=== PATIENT | male | born 1960 | race Caucasian/White ===

== ENCOUNTER 2016-04-17 23:25 | Emergency (ER) | payer BC ==
[2016-04-18] MEDS ORDERED: oxyCODONE/Acetamin 5/325 MG* TAB PO ONE (00:28)
[2016-04-18] MEDS ORDERED: Gabapentin CAP(*) 100 MG PO ONE (00:28)
[2016-04-18] MEDS ORDERED: Lidocaine 2.5%/Prilocain 2.5%* 5 GM TUBE TOPICAL ONE (00:29)
--- NOTE | 2016-04-18 01:03 | ED ---
Throat Pain/Nasal Congestion - HPI Summary HPI Summary: Patient arrives to ED with CC of dental pain. States he was seen at the dentist yesterday and was diagnosed with a dental infection. He was placed on abx. During examination, patient notes to difficult physical exam of dentist tapping on each tooth and causing nerve like pain. His front L tooth is now "throbbing" and every 15 seconds will have an episode of 10/10 throbbing pain in that tooth. The pain radiates to the frontal sinus and head. Patient notes to other dental pain as well, but the front L is the worst. Patient called dentist and dentist refused pain mediation. - History of Current Complaint Chief Complaint: EDDentalPain Time Seen by Provider: 04/18/16 00:01 Hx Obtained From: Patient Onset/Duration: Sudden Onset Severity: Severe Associated Signs And Symptoms: Positive: Negative - Allergies/Home Medications Allergies/Adverse Reactions: Allergies Allergy/AdvReac Type Severity Reaction Status Date / Time No Known Allergies Allergy Verified 02/22/15 14:17 PMH/Surg Hx/FS Hx/Imm Hx Previously Healthy: Yes Endocrine/Hematology History: Denies: Hx Diabetes, Hx Thyroid Disease Cardiovascular History: Reports: Other Cardiovascular Problems/Disorders - Vasogal, 2001, 2007, 2004, 2011 Denies: Hx Hypertension Respiratory History: Denies: Hx Asthma, Hx Chronic Obstructive Pulmonary Disease (COPD), Hx Seasonal Allergies GI History: Denies: Hx Ulcer History: Reports: Hx Kidney Stones - 2005 Musculoskeletal History: Reports: Hx Back Problems - muscle pain, left hip pain , Other Musculoskeletal History - broken bones, jaw, nose wrist thumb - Surgical History Surgery Procedure, Year, and Place: R side hernia repain 1976 Hx Anesthesia Reactions: No - Immunization History Date of Tetanus Vaccine: UNSURE Date of Influenza Vaccine: NONE Infectious Disease History: No Infectious Disease History: Denies: Hx Clostridium Difficile, Hx Hepatitis, Hx Human Immunodeficiency Virus (HIV), Hx of Known/Suspected MRSA, Hx Shingles, Hx Tuberculosis, Hx Known/ Suspected VRE, Hx Known/Suspected VRSA, History Other Infectious Disease, Traveled Outside the [place] in Last 30 Days - Social History Occupation: Employed Full-time Lives: With Family Alcohol Use: None Hx Substance Use: No Substance Use Type: Reports: Excessive Caffeine Substance Use Comment - Amount & Last Used: drinks a lot of diet sodas with caffiene Smoking Status (MU): Never Smoked Tobacco Have You Smoked in the Last Year: No Review of Systems Constitutional: Negative Positive: Photophobia Positive: Dental Pain - diffuse Cardiovascular: Negative Respiratory: Negative Musculoskeletal: Negative Skin: Negative Positive: Headache - during dental pain exacerbation Psychological: Normal All Other Systems Reviewed And Are Negative: Yes Physical Exam Triage Information Reviewed: Yes Vital Signs On Initial Exam: Initial Vitals Temp Pulse Resp BP Pulse Ox 97.9 F 83 22 116/82 98 04/17/16 23:28 04/17/16 23:28 04/17/16 23:28 04/17/16 23:28 04/17/16 23:28 Vital Signs Reviewed: Yes Appearance: Positive: Well-Appearing, No Pain Distress, Well-Nourished Skin: Positive: Warm, Skin Color Reflects Adequate Perfusion Eyes: Positive: Normal, EOMI, ED ENT: Positive: Dental tenderness - diffuse pain in upper and lower jaw Dental: Positive: Percussion Tenderness @ - diffuse, Dental Fracture @ - back L molar Neck: Positive: Supple, Nontender, No Lymphadenopathy Respiratory/Lung Sounds: Positive: Clear to Auscultation Cardiovascular: Positive: Normal Musculoskeletal: Positive: Normal, Strength/ROM Intact Neurological: Positive: Normal Psychiatric: Positive: Normal Diagnostics - Vital Signs Vital Signs Temp Pulse Resp BP Pulse Ox 04/17/16 23:28 97.9 F 83 22 116/82 98 - Laboratory Lab Statement: Any lab studies that have been ordered have been reviewed, and results considered in the medical decision making process. EENT Course/Dx - Course Course Of Treatment: Discussed pain management options. Prescribed oxycodone and gabapentin d/t likely nerve related dental pain. Orajel recommended and lollicaines given. Patient to follow up with dentist on friday. Already on Amoxicillin from infection. - Differential Diagnoses Differential Diagnoses: Dental Caries, Fractured Tooth, Periodontic Disease, Post-Extraction Pain - Diagnoses Provider Diagnoses: Pain, dental Discharge - Discharge Plan Condition: Stable Disposition: HOME Prescriptions: Gabapentin CAP(*) [Neurontin 300 CAP(*)] 300 mg PO TID #60 cap Gabapentin CAP(*) [Neurontin 300 CAP(*)] 300 mg PO TID #60 cap oxyCODONE/Acetamin 10/325(NF) [Percocet 10/325 (NF)] 1 tab PO Q6H PRN #30 tab MDD 4 PRN Reason: Pain Patient Education Materials: Toothache (ED) Referrals: Jonah Hanna MD [Primary Care Provider] - Additional Instructions: Take oxycodone as needed for pain. On opposite schedule of pain management, take naproxen 500mg twice daily with meals. For other pain relief, try cloves, orajel and lollicaines. Gabapentin three times daily - follow directions on prescription. Images - Images Dental: - 12/31 pain 2 - broken tooth
[2016-04-18 01:30] VITALS: BP 149/97
== END 2016-04-18 01:29 | disposition home or self-care (01) ==
LOC: ED 23:25
DX: K08.89 Other specified disorders of teeth and supporting structures (principal)
CPT/HCPCS: 99282; A9270-GY

== ENCOUNTER 2016-05-22 12:37 | Emergency (ER) | payer BC ==
[2016-05-22 12:48] VITALS: BP 116/79
--- NOTE | 2016-05-22 13:12 | UC ---
Epistaxis Nasal HPI - HPI Summary HPI Summary: PT HERE WITH ACTIVE BLEEDING FROM BOTH NARES. PT FEELS DIZZY BUT HAS H/O VASOVAGAL REACTIONS. PT HAD FLU LIKE SX LAST WEEK AND SO HAS BEEN BLOWING NOSE A LOT RECENTLY. YESTERDAY INJURED RIGHT HAND AT WORK AND SO TOOK ALEVE. WOKE UP ABOUT 1 AM IN A POOL OF BLOOD. WENT TO [facility] AND HAD NASAL TAMPON INSERTED RIGHT NARIS AND INSTRUCTED TO F/U WITH DR. AVELAR (ENT) IN THE MORNING. WENT HOME AND SNEEZED - BLOOD STARTED POURING OUT BOTH NARES. WENT BACK TO ER 6AM AND WAS REPACKED IN RIGHT NARIS. WENT STRAIGHT TO DR. GRIFFIN OFFICE AROUND 7:30AM. DR. AVELAR SAW PT AND SAID TO LEAVE PACKING IN PLACE AND FOLLOW-UP FOR RE-EVAL TOMORROW OR LATER TODAY IF BLEEDING STARTED AGAIN. PT CAME HERE TO [place] TO SEE HIS MOTHER. SNEEZED AND BLOOD STARTED GUSHING AGAIN SO HE CAME HERE TO . PT IS GAGGING ON BLOOD. IS NOT ANTICOAGULATED. TAKES A BABY ASPIRIN MAYBE ONCE PER MONTH. - History of Current Complaint Chief Complaint: UCGeneralIllness Stated Complaint: NOSE BLEED Time Seen by Provider: 05/22/16 12:48 Hx Obtained From: Patient Onset/Duration: Sudden Onset, Lasting Hours, Still Present Timing: Constant Severity Initially: Moderate Severity Currently: Moderate Pain Intensity: 0 Pain Scale Used: 0-10 Numeric Character: Heavy Aggravating Factor(s): URI Alleviating Factor(s): Nothing Associated Signs And Symptoms: Positive: Negative Related Hx: NSAIDs - TOOK 2 ALEVE LAST NIGHT - Allergies/Home Medications Allergies/Adverse Reactions: Allergies Allergy/AdvReac Type Severity Reaction Status Date / Time No Known Allergies Allergy Verified 02/22/15 14:17 PMH/Surg Hx/FS Hx/Imm Hx Endocrine History Of: Denies: Diabetes, Thyroid Disease Cardiovascular History Of: Reports: Cardiac Disorders - vaso vagal response, large rt ventricle Denies: Hypertension Respiratory History Of: Denies: COPD, Asthma GI/ History Of: Reports: Kidney Stones - 2005 Denies: Ulcer - Surgical History Surgical History: Yes Surgery Procedure, Year, and Place: R side hernia repain 1976 - Family History Known Family History: Negative: Blood Disorder - Social History Alcohol Use: None Substance Use Type: Excessive Caffeine Substance Use Comment - Amount & Last Used: drinks a lot of diet sodas with caffiene Smoking Status (MU): Never Smoked Tobacco Have You Smoked in the Last Year: No - Immunization History Most Recent Influenza Vaccination: never Most Recent Tetanus Shot: last couple years Most Recent Pneumonia Vaccination: never Review of Systems Constitutional: Negative, Fatigue - DIZZY ENT: Other - NOSE BLEED Respiratory: Negative Cardiovascular: Negative Gastrointestinal: Other - NAUSEA All Other Systems Reviewed And Are Negative: Yes Physical Exam Triage Information Reviewed: Yes Appearance: No Pain Distress, Well-Nourished, Ill-Appearing - PALE Vital Signs: Initial Vital Signs Temp 97.8 F 05/22/16 12:42 Pulse 108 05/22/16 12:42 Resp 18 05/22/16 12:42 BP 116/79 05/22/16 12:42 Pulse Ox 96 05/22/16 12:42 Vital Signs Reviewed: Yes Eyes: Positive: Conjunctiva Clear ENT: Positive: Hearing grossly normal, Other: - BLOOD SOAKED NASAL TAMPON RIGHT NARIS. BLOOD ACTIVELY OOZING OUT OF LEFT NARIS Neck: Positive: Supple Respiratory: Positive: No respiratory distress, No accessory muscle use Cardiovascular: Positive: Tachycardia Abdomen Description: Positive: Soft Musculoskeletal: Positive: No Edema Neurological: Positive: Alert Psychological: Positive: Age Appropriate Behavior Skin: Negative: rashes Epistaxis Nasal Course/Dx - Course Course Of Treatment: CALLED ENT - CLOSED FOR LUNCH. TO ER BY PRIVATE CAR ( DRIVEN BY A FRIEND). SEVERAL MINUTES AFTER PT LEFT I SPOKE TO DR. HUNTLEY WITH ENT. AGREED TO SEE PT IN OFFICE. CALLED PT AND SPOKE TO HIM ON THE PHONE. HE WILL REDIRECT TO ENT OFFICE. - Differential Dx/Diagnosis Provider Diagnoses: EPISTAXIS - Physician Notifications Discussed Patient Care With: DR. HUNTLEY (ENT) Time Discussed With Above Provider: 13:30 Instructed by Provider To: Send To Office Now - DR. HUNTLEY AGREES TO SEE PT IN OFFICE NOW. CALLED PT AND ADVISED HIM TO REDIRECT TO ENT OFFICE. Discharge - Discharge Plan Condition: Stable Disposition: OTHER Discharge Disposition Comment: TO ENT OFFICE DIRECTLY Patient Education Materials: Nosebleed (ED) Referrals: Jonah Hanna MD [Primary Care Provider] - Jaylan Huntley MD [Medical Doctor] - (GO THERE DIRECTLY) Additional Instructions: CONTACTED DR. HUNTLEY WITH ENT. GO DIRECTLY TO HIS OFFICE FOR FURTHER EVALUATION AND MANAGEMENT.
[2016-05-22] MEDS ORDERED: fentaNYL* 50 MCG/ML 5 ML VIAL (250 MCG VIAL) ONE (15:10)
[2016-05-22] MEDS ORDERED: KETAMINE HCL* 50 MG/ML 10 ML VIAL ONE (15:10)
[2016-05-22] MEDS ORDERED: Atracurium* 10 MG/ML 10 ML VIAL ONE (15:10)
[2016-05-22] MEDS ORDERED: Midazolam* 1 MG/ML 5 ML VIAL (5 MG) ONE (15:11)
[2016-05-22] MEDS ORDERED: Oxymetazoline 0.05% NASAL SPR* 15 ML BTL ONE (15:12)
[2016-05-22] MEDS ORDERED: Lidocain 1% EPI 1:100,000 * 30 ML MDV ONE (15:12)
[2016-05-22] MEDS ORDERED: Bacitracin OINTMENT* 0.5% 0.5 oz TUBE ONE (15:12)
[2016-05-22] MEDS ORDERED: Lidocaine 4% TOPICAL* 50 ML TOP.SOLN ONE (15:12)
[2016-05-22] MEDS ORDERED: Silver Nitrate/Potassium Nitr* 1 EA STICK ONE (15:12)
[2016-05-22] MEDS ORDERED: Glycopyrrolate IV* 0.2 MG/ML 1 ML VIAL ONE (16:39)
[2016-05-22] MEDS ORDERED: Neostigmine Methylsulfate* 2 MG/2 ML SYRINGE ONE (16:39)
== END 2016-05-22 13:37 ==
LOC: UCEAST 12:37
DX: R04.0 Epistaxis (principal); R42 Dizziness and giddiness
CPT/HCPCS: 99211; A9270-GY; G0463; J2250; J3010

== ENCOUNTER → 2016-05-22 15:08 | Day surgery (SDC) | payer BC ==
[~2016-05-22 15:08] MED LIST: Buffered Lidocaine 1% SYR 3ML* 3 ML/SYR SYRINGE INTRADERM ONE; Hetastarch in NS* 500 ML IV ONE; Morphine INJ* 2 MG/ML 1 ML CARPUJECT IV PRN; PROCHLORPERAZINE INJ 5 MG/ML 2 ML VIAL IV PRN; fentaNYL* 50 MCG/ML 2 ML VIAL (100 MCG VIAL) IV PRN; oxyCODONE/Acetamin 5/325 MG* TAB PO PRN
[2016-05-22 18:09] VITALS: BP 142/90
--- NOTE | 2016-05-23 07:35 | OP ---
DATE OF OPERATION: 05/22/16 - [facility] DATE OF : 58 SURGEON: Giorgio Crawley MD ROAD PRODUCTION GENERAL MANAGER: None. ANESTHESIOLOGIST: Albert Shook MD ANESTHESIA: General. PRE-OP DIAGNOSIS: Posterior epistaxis. POST-OP DIAGNOSIS: Posterior epistaxis. OPERATIVE PROCEDURE: Endoscopic control of epistaxis. ESTIMATED BLOOD LOSS: Approximately 30 cc. FINDINGS: Brisk arterial bleed coming from the right nasal cavity on the undersurface of the right inferior turbinate at the point of insertion to the lateral nasal wall. DESCRIPTION OF PROCEDURE: This is a 55-year-old male, who has had recurring severe episodes of epistaxis over the past 24 hours. He had been packed multiple times at a variety of different locations including [facility] and subsequently our office. When it became clear that the patient could not be controlled with packing, the decision was made to bring him to the operating room. He was brought to the operating room, general anesthesia was induced using a rapid sequence induction. The patient was orally intubated without incident. The patient was then draped and a time-out was performed. The patient had a Merocel pack in the right nasal cavity, this was removed. There was immediate brisk bleeding from the right nasal cavity. A 0-degree rigid endoscope was used to explore the right nasal cavity. There was evidence of pulsatile brisk bleeding from underneath the right inferior turbinate. The turbinate was elevated and the arterial source was well visualized. The suction Bovie cautery was then brought into the field and the area was extensively cauterized at a setting of 25. Ultimately, the bleeding did stop and the area was able to be abraded without any further bleeding. At this point , some Surgicel was packed underneath the inferior turbinate and a 10-cm Merocel was then placed into the nasal cavity to provide additional pressure in the area. The patient's stomach was then emptied with an orogastric tube. The patient was then returned to the care of the anesthesiologist, was extubated without difficulty, delivered to PACU in stable condition. [id number]/CPS #: [id number] MTDD
== END | disposition home or self-care (01) ==
LOC: OR 15:08
PROVIDERS: ATTEND Otolaryngology
DX: R04.0 Epistaxis (principal)

== ENCOUNTER 2016-05-29 13:59 | Emergency (ER) | payer BC ==
[2016-05-29] MEDS ORDERED: Aspirin Low Dose CHEW TAB* 81 MG PO ONE (14:05)
[2016-05-29] MEDS ORDERED: NS 0.9% 1000 ML* 1,000 ML IV SCH (14:45)
[2016-05-29 14:46] LABS: Hematocrit 41 % (42-52); Hemoglobin 13.7 g/dl (14.0-18.0); Mean Corpuscular HGB Conc 33 g/dl (31-36); Mean Corpuscular Hemoglobin 28 pg (27-31); Mean Corpuscular Volume 84 fL (80-94); Mean Platelet Volume 9 um3 (7.4-10.4); Red Blood Count 4.91 10^6/ul (4.0-5.4); Red Cell Distribution Width 13 % (10.5-15); White Blood Count 10.6 10^3/ul (3.5-10.8)
--- NOTE | 2016-05-29 15:03 | RAD ---
Indication: Chest pain. Single frontal view of the chest performed at 1405 hours was reviewed. Comparison is made with previous exam dated September 14, 2014. No mediastinal shift is noted. Heart is of normal size and configuration. Lung velazquez appear clear. IMPRESSION: NO ACTIVE CARDIOPULMONARY DISEASE IS NOTED.
[2016-05-29 15:04] LABS: Albumin 3.8 g/dL (3.2-5.2); BUN/Creatinine Ratio 17.3 (8-20); C Reactive Protein 3.72 mg/L (< 5.00); Calcium 8.9 mg/dL (8.6-10.3); EGFR African American 101.8 (>60); EGFR Non-African American 79.1 (>60); Magnesium 1.9 mg/dL (1.9-2.7); Potassium 3.8 mmol/L (3.5-5.0); Total Bilirubin 0.5 mg/dL (0.2-1.0); Total Protein 6.8 g/dL (6.4-8.9); Troponin I 0.01 ng/mL (<0.04)
--- NOTE | 2016-05-29 18:43 | ED ---
Suad Evangelista Erika, scribed for Andrew Vega MD on 05/29/16 at 1502 . HPI Chest Pain - HPI Summary HPI Summary: Patient is a 55-year-old male presenting to the ED with a CC of chest pain starting at 12:00 today. Patient reports that pain is a constant discomfort midsternal, with occasional radiation right anterior. Pain was a 6/10, and is now a 5/10. He now describes pain as a tightness. Pain is not aggravated or alleviated by anything that pt has noticed. Patient then developed diaphoresis, slight SOB, and numbness in his L arm. Patient reports a "weird" feeling in his abdomen, but states this was not nausea. Pt also reports that he had diarrhea 2 days ago, but not yesterday, and had diarrhea again today. Patient denies abdominal pain and urinary symptoms. Patient does report that he had emergency sinus surgery by Dr. Crawley 1 week ago due to profuse epistaxis that lasted 10+ hours. Patient reports that he had some black stools after the surgery due to swallowing blood, but no longer has these. He does still note congestion. Patient reports a normal stress test 1 year ago. Hx GERD. Patient denies Hx MN, and does not take a blood thinner. - History of Current Complaint Chief Complaint: EDChestPainROMI Time Seen by Provider: 05/29/16 14:07 Hx Obtained From: Patient Onset/Duration: Started Hours Ago, Atraumatic, Still Present Timing: Constant Current Severity: Moderate Pain Intensity: 6 Pain Scale Used: 0-10 Numeric Chest Pain Location: Mid Sternal, Right Anterior Character: Tightness Associated Signs and Symptoms: Positive: Shortness of Breath, Diaphoresis, Other : - L arm numbness - Allergy/Home Medications Allergies/Adverse Reactions: Allergies Allergy/AdvReac Type Severity Reaction Status Date / Time No Known Allergies Allergy Verified 05/22/16 15:38 PMH/Surg Hx/FS Hx/Imm Hx Endocrine/Hematology History: Denies: Hx Diabetes, Hx Thyroid Disease Cardiovascular History: Reports: Other Cardiovascular Problems/Disorders - Vasogal, 2001, 2007, 2004, 2011 Denies: Hx Hypertension Respiratory History: Denies: Hx Asthma, Hx Chronic Obstructive Pulmonary Disease (COPD), Hx Seasonal Allergies GI History: Reports: Hx Gastroesophageal Reflux Disease Denies: Hx Ulcer History: Reports: Hx Kidney Stones - 2005 Musculoskeletal History: Reports: Hx Back Problems - muscle pain, left hip pain , Other Musculoskeletal History - broken bones, jaw, nose wrist thumb - Surgical History Surgery Procedure, Year, and Place: R side hernia repain 1976 Hx Anesthesia Reactions: No - Immunization History Date of Tetanus Vaccine: UNSURE Date of Influenza Vaccine: NONE Infectious Disease History: No Infectious Disease History: Denies: Hx Clostridium Difficile, Hx Hepatitis, Hx Human Immunodeficiency Virus (HIV), Hx of Known/Suspected MRSA, Hx Shingles, Hx Tuberculosis, Hx Known/ Suspected VRE, Hx Known/Suspected VRSA, History Other Infectious Disease, Traveled Outside the [place] in Last 30 Days - Family History Known Family History: Positive: Cardiac Disease - Social History Alcohol Use: None Hx Substance Use: No Substance Use Type: Reports: None Hx Tobacco Use: No Smoking Status (MU): Never Smoked Tobacco Have You Smoked in the Last Year: No Review of Systems Positive: Skin Diaphoresis ENT: Other - nasal congestipn Positive: Chest Pain Positive: Shortness Of Breath Gastrointestinal: Other - abdomen feels "weird" Positive: Diarrhea. Negative: Abdominal Pain, Nausea Negative: dysuria Positive: Numbness - L arm All Other Systems Reviewed And Are Negative: Yes Physical Exam Triage Information Reviewed: Yes Vital Signs On Initial Exam: Initial Vitals Temp Pulse Resp BP Pulse Ox 99.2 F 87 20 134/83 96 05/29/16 14:04 05/29/16 14:04 05/29/16 14:04 05/29/16 14:04 05/29/16 14:04 Vital Signs Reviewed: Yes Appearance: Positive: Well-Appearing, No Pain Distress Skin: Positive: Warm, Skin Color Reflects Adequate Perfusion, Dry Head/Face: Positive: Normal Head/Face Inspection Eyes: Positive: EOMI, ED ENT: Positive: Normal ENT inspection Neck: Positive: Supple, Nontender Respiratory/Lung Sounds: Positive: Clear to Auscultation, Breath Sounds Present Cardiovascular: Positive: RRR Abdomen Description: Positive: Nontender, Soft Bowel Sounds: Positive: Present Musculoskeletal: Positive: Normal, Strength/ROM Intact Neurological: Positive: Normal, Sensory/Motor Intact, Alert, Oriented to Person Place, Time Psychiatric: Positive: Anxious - [place] Coma Scale Coma Scale Total: 15 Diagnostics - Vital Signs Vital Signs Temp Pulse Resp BP Pulse Ox 05/29/16 14:10 85 15 137/83 96 05/29/16 14:05 93 14 96 05/29/16 14:04 99.2 F 87 20 134/83 96 - Laboratory Lab Results: Lab Results 05/29/16 05/29/16 05/29/16 Range/Units 14:35 14:35 14:35 WBC 10.6 (3.5-10.8) 10^3/ul RBC 4.91 (4.0-5.4) 10^6/ul Hgb 13.7 L (14.0-18.0) g/dl Hct 41 L (42-52) % MCV 84 (80-94) fL MCH 28 (27-31) pg MCHC 33 (31-36) g/dl RDW 13 (10.5-15) % Plt Count 242 (150-450) 10^3/ul MPV 9 (7.4-10.4) um3 Neut % (Auto) 70.0 (38-83) % Lymph % (Auto) 18.9 L (25-47) % Dixon % (Auto) 7.7 (1-9) % Eos % (Auto) 2.8 (0-6) % Baso % (Auto) 0.6 (0-2) % Absolute Neuts (auto) 7.4 (1.5-7.7) 10^3/ul Absolute Lymphs (auto) 2.0 (1.0-4.8) 10^3/ul Absolute Monos (auto) 0.8 (0-0.8) 10^3/ul Absolute Eos (auto) 0.3 (0-0.6) 10^3/ul Absolute Basos (auto) 0.1 (0-0.2) 10^3/ul Absolute Nucleated RBC 0.02 10^3/ul Nucleated RBC % 0.2 INR (Anticoag Therapy) (0.89-1.11) D-Dimer, Quantitative (Less Than 230) ng/mL Sodium 134 (133-145) mmol/L Potassium 3.8 (3.5-5.0) mmol/L Chloride 99 L (101-111) mmol/L Carbon Dioxide 26 (22-32) mmol/L Anion Gap 9 (2-11) mmol/L BUN 17 (6-24) mg/dL Creatinine 0.98 (0.67-1.17) mg/dL Est GFR ( Amer) 101.8 (>60) Est GFR (Non-Af Amer) 79.1 (>60) BUN/Creatinine Ratio 17.3 (8-20) Glucose 96 (70-100) mg/dL Lactic Acid 0.7 (0.5-2.0) mmol/L Calcium 8.9 (8.6-10.3) mg/dL Magnesium 1.9 (1.9-2.7) mg/dL Total Bilirubin 0.50 (0.2-1.0) mg/dL AST 17 (13-39) U/L ALT 23 (7-52) U/L Alkaline Phosphatase 64 (34-104) U/L Troponin I 0.01 (<0.04) ng/mL C-Reactive Protein 3.72 (< 5.00) mg/L Total Protein 6.8 (6.4-8.9) g/dL Albumin 3.8 (3.2-5.2) g/dL Globulin 3.0 (2-4) g/dL Albumin/Globulin Ratio 1.3 (1-3) Lipase 21 (11.0-82.0) U/L 05/29/16 05/29/16 Range/Units 14:35 17:50 WBC (3.5-10.8) 10^3/ul RBC (4.0-5.4) 10^6/ul Hgb (14.0-18.0) g/dl Hct (42-52) % MCV (80-94) fL MCH (27-31) pg MCHC (31-36) g/dl RDW (10.5-15) % Plt Count (150-450) 10^3/ul MPV (7.4-10.4) um3 Neut % (Auto) (38-83) % Lymph % (Auto) (25-47) % Dixon % (Auto) (1-9) % Eos % (Auto) (0-6) % Baso % (Auto) (0-2) % Absolute Neuts (auto) (1.5-7.7) 10^3/ul Absolute Lymphs (auto) (1.0-4.8) 10^3/ul Absolute Monos (auto) (0-0.8) 10^3/ul Absolute Eos (auto) (0-0.6) 10^3/ul Absolute Basos (auto) (0-0.2) 10^3/ul Absolute Nucleated RBC 10^3/ul Nucleated RBC % INR (Anticoag Therapy) 1.02 (0.89-1.11) D-Dimer, Quantitative < 200 (Less Than 230) ng/mL Sodium (133-145) mmol/L Potassium (3.5-5.0) mmol/L Chloride (101-111) mmol/L Carbon Dioxide (22-32) mmol/L Anion Gap (2-11) mmol/L BUN (6-24) mg/dL Creatinine (0.67-1.17) mg/dL Est GFR ( Amer) (>60) Est GFR (Non-Af Amer) (>60) BUN/Creatinine Ratio (8-20) Glucose (70-100) mg/dL Lactic Acid (0.5-2.0) mmol/L Calcium (8.6-10.3) mg/dL Magnesium (1.9-2.7) mg/dL Total Bilirubin (0.2-1.0) mg/dL AST (13-39) U/L ALT (7-52) U/L Alkaline Phosphatase (34-104) U/L Troponin I 0.01 (<0.04) ng/mL C-Reactive Protein (< 5.00) mg/L Total Protein (6.4-8.9) g/dL Albumin (3.2-5.2) g/dL Globulin (2-4) g/dL Albumin/Globulin Ratio (1-3) Lipase (11.0-82.0) U/L Result Diagrams: 05/29/16 14:35 05/29/16 14:35 Lab Statement: Any lab studies that have been ordered have been reviewed, and results considered in the medical decision making process. - Radiology CXR Radiology Interpretation Completed By: Radiologist - IMPRESSION: NO ACTIVE CARDIOPULMONARY DISEASE IS NOTED. - EKG 13:57 Cardiac Rate: NL - at 88 bpm EKG Rhythm: Sinus Rhythm Ectopy: None EKG Interpretation: Flipped T waves in III Re-Evaluation - Re-Evaluation First Eval Re-Evaluation Time: 17:07 Change: Improved Comment: Discussed lab results, EKG, and CXR with patient. Patient is feeling better with no chest pain. Talked about admission vs. a 6 hour troponin at 18: 00. Patient agrees to the 6 hour troponin, and declines admission. Second Eval Re-Evaluation Time: 18:40 Comment: Second troponin negative. Pt again declines admission Chest Pain Course/Dx - Course Assessment/Plan: CHEST PAIN GONE IN ED. DISCUSSED ADMISSION. PATIENT DECLINED ADMISSION. AGREES TO A TROPONIN 6 HOURS AFTER CHEST PAIN ONST (NOON). 1800 TROPONIN NEGATIVE. DISCHARGE HOME STABLE. - Diagnoses Provider Diagnoses: Chest pain Discharge - Discharge Plan Condition: Stable Disposition: HOME Patient Education Materials: Chest Pain (ED) Referrals: Jonah Hanna MD [Primary Care Provider] - Additional Instructions: FOLLOW UP WITH YOUR DOCTOR. RETURN TO THE EMERGENCY DEPARTMENT FOR ANY WORSENING OF YOUR CONDITION; CHEST PAIN, SHORTNESS OF BREATH, YOU FEEL ILL OR QUESTIONS OR CONCERNS. The documentation as recorded by the Suad ventura Erika accurately reflects the service I personally performed and the decisions made by me, Andrew Vega MD.
[2016-05-29 19:13] VITALS: BP 132/74
== END 2016-05-29 19:12 | disposition home or self-care (01) ==
LOC: ED 13:59
DX: R07.9 Chest pain, unspecified (principal); R06.02 Shortness of breath; R61 Generalized hyperhidrosis
CPT/HCPCS: 36415; 71010; 80053; 83605; 83690; 83735; 84484; 85025; 85379; 85610; 86140; 93005; 99284; A9270-GY

== ENCOUNTER → 2016-06-26 06:22 | Day surgery (SDC) | payer BC ==
[~2016-06-26 06:22] MED LIST changes: -Buffered Lidocaine 1% SYR 3ML* 3 ML/SYR SYRINGE INTRADERM ONE; +Buffered Lidocaine 1% SYRIN* 3 ML/SYR SYRINGE INTRADERM ONE; +Bupivacaine 0.5% W/EPI SDV* 30 ML VIAL ONE; +Dexamethasone IV* 4 MG/ML 1 ML (4 MG) ONE; +DiMENhydriNATE IV* 50 MG/ML VIAL ONE; +EPINEPHrine AMP 1 MG/ML ONE; +Famotidine IV* 10 MG/ML 2 ML (20 mg) IV ONE; +Famotidine IV* 10 MG/ML 2 ML (20 mg) ONE; +Glycopyrrolate IV* 0.2 MG/ML 1 ML VIAL ONE; +HYDROmorphone* 1 MG/ML 1 ML SYR IV PRN; +HYDROmorphone* 1 MG/ML 1 ML SYR ONE; -Hetastarch in NS* 500 ML IV ONE; +KETAMINE HCL* 50 MG/ML 10 ML VIAL ONE; +Ketorolac INJ* 30 MG/ML 1 ML VIAL ONE; +Lidocaine 2% PF* 5 ML VIAL ONE; +Midazolam* 1 MG/ML 2 ML VIAL (2 MG) ONE; +Midazolam* 1 MG/ML 5 ML VIAL (5 MG) ONE; -Morphine INJ* 2 MG/ML 1 ML CARPUJECT IV PRN; +Ondansetron INJ* 2 MG/ML VIAL ONE; -PROCHLORPERAZINE INJ 5 MG/ML 2 ML VIAL IV PRN; +Propofol* 10 MG/ML 20 ML BTL IV PUSH ONE; +ROPIVACAINE 5 MG/ML 30 ML BTL (0.5%) ONE; +Succinylcholine* 20 MG/ML 10 ML VIAL ONE; +ceFAZolin 2 GM PREMIX(*) 2 GM/50 ML BAG IVPB ONE; +diPHENhydraMINE IV* 50 MG/ML 1 ml VIAL (BENADRYL) IV PRN; -fentaNYL* 50 MCG/ML 2 ML VIAL (100 MCG VIAL) IV PRN; +fentaNYL* 50 MCG/ML 2 ML VIAL (100 MCG VIAL) ONE
[2016-06-26 15:31] VITALS: BP 131/81
--- NOTE | 2016-06-27 12:11 | OP ---
DATE OF OPERATION: 06/26/16 - [facility] DATE OF : 58 SURGEON: Stevie Hollingsworth MD UTILITY SALES AND SERVICE MANAGER: DIRK Silva ANESTHESIOLOGIST: Dr. Hoffman ANESTHESIA: General anesthesia, regional interscalene block anesthesia, local anesthesia. PRE-OP DIAGNOSES: 1. Right shoulder rotator cuff tear, massive, 2 tendon, retracted, chronic. 2. Right shoulder subacromial impingement. 3. Right shoulder acromioclavicular joint arthritis. 4. Right shoulder proximal biceps tendinosis and possible superior labral tear. POST-OP DIAGNOSES: 1. Right shoulder rotator cuff tear, supraspinatus, infraspinatus. 2. Right shoulder subacromial impingement. 3. Right shoulder acromioclavicular joint arthritis. 4. Right shoulder proximal biceps tendinosis. 5. Right shoulder superior labral tear. OPERATIVE PROCEDURES: 1. Right shoulder examination under anesthesia. 2. Right shoulder manipulation under anesthesia. 3. Right shoulder rotator cuff repair, supraspinatus, infraspinatus, arthroscopic. 4. Right shoulder arthroscopic subacromial decompression. 5. Right shoulder arthroscopic distal clavicle resection. 6. Right shoulder proximal biceps release, arthroscopic. 7. Right shoulder arthroscopic debridement of the superior labrum. ANTIBIOSIS: Ancef 2 g IV. IV FLUIDS: See Anesthesia note. COMPLICATIONS: None. SPECIMEN: None. IMPLANTS: Healix Triple Loaded 5.5 mm Suture [place] x1, Healix Double Loaded 5.5 mm Suture [place] x1, Healix 4.5 mm Double Loaded Suture [place] x1. All Mitek Mikael and Mikael. 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 The patient's and he acknowledge that he may have had shoulder pain, right for longer, but the patient has still been able to lift very heavy weights at home and at work with his right upper extremity, so he assumed there was not a problem. Around the time of December 2015, the patient was doing work on his mom' s house with his arms overhead, doing some work with [employer]. At that time, he developed bilateral shoulder pain, and saw his primary care physician who prescribed him oral prednisone. That made his left shoulder pain resolve, but his right shoulder pain persisted. That is when he saw me in clinic. 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 I saw the patient in clinic and diagnosed him with a rotator cuff tendonitis or a possible rotator cuff tear. The patient's significant upper body strength concealed significant weakness on rotator cuff stress testing. I treated him with cortisone subacromial injection, which worked very well for just over 2 months, almost entirely relieving his pain. I also sent the patient to physical therapy, which he did, and he continued afterwards with home exercises. I had the patient take oral anti-inflammatories, but the patient's primary care physician had also given him oxycodone at some point. The patient's pain recurred in eart in April 2016, pain with activities of daily living at home and at work, and also pain with sleeping. The patient's recent medical history was significant for persistent nosebleed that required electrocautery in the operating room at [facility]. The patient's physical exam demonstrated full range of motion with the exception of internal rotation to only 30 degrees. Positive Neer's and Garcia. Positive pain and weakness with supraspinatus as well as external rotators stress testing. Positive tenderness to palpation of the AC joint and biceps. Positive Speed's and Placer's tests. The patient is well muscled. X-ray and MRI showed significant AC joint narrowing and bony hypertrophy as well as a small lateral acromial spur, seemingly impinging on the supraspinatus. There is some thickening of the biceps noted on MRI as well as some increased signal in the superior labrum. There were also full-width, full- thickness tears of the supra and infraspinatus noted on MRI. Retraction of these tendons was to just medial to the apex of the humeral head and the musculotendinous junction, it was unclear if it was just medial or just lateral to the glenoid, 50% fat infiltration in the supraspinatus, only trace fatty infiltration in the infraspinatus. The patient opted for surgery. I did supervisor counseling and guidance the patient that his supraspinatus tear might not be reparable given the significant amount of fatty infiltration. DESCRIPTION OF PROCEDURE: Preoperative written consent. Operative extremity was marked in preoperative holding. Review of benefits, risks, and potential complications of the procedure. The patient was taken back to the operating room, placed supine on operating room table. Anesthesia performed regional interscalene block. The patient was then sedated and intubated. Then I did a mini time-out. I have checked the patient's shoulder on range of motion. His passive flexion was only 150 degrees. His passive internal rotation was only perhaps 40 degrees. I then performed a manipulation under anesthesia and was able to obtain 180 degrees of forward flexion. I was able to obtain perhaps 70 degrees of internal rotation with the shoulder stabilized in an abductor position. There were no clear pops or crackles appreciated with improved range of motion, but the range of motion did improve. The patient was then turned into a lateral decubitus position with the right side up. The arm was placed in 15 pounds of traction. Bony prominences were all well padded. Romero bag was insufflated. Axillary/chest roll was placed. The right shoulder had been shaved about the incision sites. The right shoulder was prepped and draped. Surgical time-out was performed. The right glenohumeral joint had infused into it 25 cc of normal saline. I then entered the glenohumeral joint with a standard posterior portal. Commenced diagnostic arthroscopy. There was some red tint, a small amount of blood in the joint, which we often see after a manipulation under anesthesia. There was no clear defect of the articular cartilage of the humeral head or glenoid. Clear supra and infraspinatus rotator cuff tears were seen. There is significant thickening, almost shredding of the biceps tendon proximally, without medial subluxation. There also appeared to be some tearing of the undersurface of the labrum. I established an anterior glenohumeral joint portal under direct visualization. I then entered an arthroscopic scissors and cut the biceps just off of its origin secondary to the significant amount of tendinosis of the biceps tendon. Then I entered an arthroscopic shaver and I debrided the superior labrum. I also debrided some tissue in the rotator interval. I then visualized the subscapularis. I did so with posterior translation and external rotation stress. There did not appear to be any subscapularis tear. Again visualized through the joint. No articular cartilage or significant additional labral pathology. No loose bodies inferiorly visualized. I could appreciate, looking superiorly, that there was much retracted rotator cuff tendon. I then removed all instruments and fluid. I then entered the subacromial space from posterior and anterior. Fluid inflow was placed anterior. I then entered the subacromial space from posterior and established a lateral subacromial joint portal, mid lateral, and entered a shaver through there. I debrided the undersurface of the acromion, and the gutters on all sides of the humeral head. I then used VAPR electrocautery to better visualize the undersurface of the acromion. The acromion had some spurring anteromedially, but nothing significant well visualized anterolaterally. I then evaluated the rotator cuff tendon tear. There was a decreased width of tear as I was expecting. There was clearly a wide supra and infraspinatus rotator cuff tear with significant retraction. With a cuff grasper, this easily reduced to the humeral head. There was an intralaminar split as well as with a not insignificant thickness in the inferior leaflet. This was more significant posterior than anterior. The posterior aspect of the inferior leaflet was reducible. I improved the mobility of both leaflets by debriding with arthroscopic shaver and then switching stick between the rotator cuff and the superior labrum. Also, aggressive debridement between rotator cuff tendon and deltoid fascia had improved mobility. I cleared off the rotator cuff footprint, bare, with arthroscopic shaver followed by arthroscopic iliana. I considered repairing the inferior and superior leaflets together, that is what I more often do. However, given the significant thickness of that inferior leaflet and its slightly different excursion tension, I wanted to repair it separately. I next placed an anterolateral portal as this was clearly going to provide the best angle for EXPRESSEW device usage. I then placed an anchor through a superolateral stab hole in the skin into the medial most aspect of the posterior part of the exposed rotator cuff footprint. As this was going to be just a repair of the inferior leaflet, I chose a small suture anchor, 4.5 mm double loaded suture anchor. I placed suture anchor. I then used the EXPRESSEW device to place 2 horizontal mattress stitches in that inferior leaflet. With tying of these sutures, this tendon came down to bone nicely. While there was a trace amount of tension, it was not an overwhelming amount of tension to the repair. I again used a rotator cuff grasper to see how the larger superior leaflet of the tear wanted to reduce. It really appeared L-shaped and I appreciate it most at that point. The distal aspect of the tendon easily opposed to the rotator cuff footprint. However, there was also a longitudinal cut in the infraspinatus tendon from medial to lateral. I decided to first reduce the tendon to the bone. I then placed 2 suture anchors, 5.5 mm, the first triple loaded and the second double loaded into the more medial aspect of the rotator cuff footprint. I placed horizontal mattress stitches using the [employer] device. I did not exactly tie as I went. I believe after placing 4 or 6 sutures through the cuff , I tied my first stitch to oppose the cuff nicely and ensure that I was getting a properly looking repair. With the second of the 2 sutures in my more posterior anchor, I actually placed 1 of the 2 sutures through the main part of the rotator cuff that had torn and the posterior suture I placed through intact infraspinatus, creating essentially a [id number] repair at the apex of the L- shaped tear. After all knots had been tied, we had really an excellent repair. I probed the undersurface and it was an excellent repair of rotator cuff tendon without any holes whatsoever. There was ample cuff tissue just lateral to the suture anchors as well for more apposition of healing. I then, to reinforce the repair, placed 2 [id number] stitches in the longitudinal split of the infraspinatus. I placed these stitches using a crescent LAURA device followed by a FiberWire #2 suture. I considered a lateral suture anchor given the length of the tear, but decided against it, that it would be more cosmetic than anything else as my repair seemed excellent. I cut all excess suture ends. The tear was stable both to probing and to rotation of the humerus. Not having performed a subacromial decompression prior to repair, which is my normal order, I then performed a subacromial decompression using an arthroscopic iliana. I only took perhaps 3 mm off the anterolateral acromion. More medially at the anterior hook of the acromion and anteromedially closer to the AC joint, I took more like 5 mm off the undersurface of the acromion. I then addressed the AC joint. I debrided synovitic tissue about the AC joint with VAPR cautery. I then debrided 8 mm of the distal end of the clavicle with an arthroscopic iliana. I visualized all 4 corners. Instruments and fluid were removed from the subacromial space. The skin incisions, which there were 8, were closed with [id number] and 12 stitches using nylon 3.0 suture. One exception was I placed one subcutaneous buried simple stitch using Vicryl 3.0 suture and the largest of my skin incisions, the anterolateral portal through which I had a 7 mm plastic cannula for much of the procedure. Xeroform, 4 x 4's, ABDs, foam tape, UltraSling, cooling unit. At the request of the anesthesia just prior to placing Xeroform, I did place approximately 8 cc of lidocaine about the skin incisions in the subcutaneous tissue. The patient was awakened and extubated and brought to the PACU. DISPOSITION: The patient will be discharged home when medically stable. Should follow up in the clinic 10 to 14 days postoperative. He will be given prescriptions for Percocet, Keflex, and aspirin. [id number]/[facility] #: [id number] FRANK
== END | disposition home or self-care (01) ==
LOC: OR 06:22
PROVIDERS: ATTEND Orthopaedic Surgery
DX: S46.011A Strain of muscle(s) and tendon(s) of the rotator cuff of right shoulder, initial encounter (principal); M75.41 Impingement syndrome of right shoulder; M19.011 Primary osteoarthritis, right shoulder; M75.21 Bicipital tendinitis, right shoulder; S43.491A Other sprain of right shoulder joint, initial encounter; X50.3XXA Overexertion from repetitive movements, initial encounter; X50.0XXA Overexertion from strenuous movement or load, initial encounter; Y93.89 Activity, other specified; Y92.9 Unspecified place or not applicable; G47.33 Obstructive sleep apnea (adult) (pediatric); R07.9 Chest pain, unspecified; E66.01 Morbid (severe) obesity due to excess calories; M19.90 Unspecified osteoarthritis, unspecified site
CPT/HCPCS: J0171; J0330; J0690; J1100; J1170; J1240; J1885; J2250; J2405; J2704; J2795; J3010

== ENCOUNTER 2017-03-22 22:43 | Emergency (ER) | payer BC ==
[2017-03-22] MEDS ORDERED: Aspirin Low Dose CHEW TAB* 81 MG PO ONE (23:54)
[2017-03-22] MEDS ORDERED: Nitroglycerin 2% OINT* 1 GM PAK TOPICAL ONE (23:54)
[2017-03-23 00:14] LABS: ABS Basophils 0.1 10^3/ul (0-0.2); ABS Eosinophils 0.5 10^3/ul (0-0.6); ABS Lymphocytes 2.9 10^3/ul (1.0-4.8); ABS Monocytes 0.9 10^3/ul (0-0.8); ABS Neutrophils 6.4 10^3/ul (1.5-7.7); ABS Nucleated RBC 0.01 10^3/ul; Eosinophil % 4.2 % (0-6); Hematocrit 43 % (42-52); Hemoglobin 14.5 g/dl (14.0-18.0); Lymphocyte % 27.1 % (25-47); Mean Corpuscular HGB Conc 34 g/dl (31-36); Mean Corpuscular Hemoglobin 29 pg (27-31); Mean Corpuscular Volume 85 fL (80-94); Mean Platelet Volume 8 um3 (7.4-10.4); Nucleated Red Blood Cells % 0.1; Platelet Count 203 10^3/ul (150-450); Red Cell Distribution Width 14 % (10.5-15); White Blood Count 10.8 10^3/ul (3.5-10.8)
[2017-03-23 00:26] LABS: EGFR Non-African American 81.7 (>60); INR 0.9 (0.77-1.02)
[2017-03-23 04:41] VITALS: BP 128/69
--- NOTE | 2017-03-23 04:54 | ED ---
Amy Evangelista Gabriel, scribed for Tom Bautitsa on 03/22/17 at 2354 . HPI Chest Pain - HPI Summary HPI Summary: This patient is a 56 year old M presenting to [facility] accompanied by his with a chief complaint of CP since 3 weeks. The patient rates the pain 4/10 in severity located in the epigastric region. Symptoms alleviated by belching. Patient reports neck pain, headache, diaphoresis, and diarrhea. Patient is taking Nexium. He also had a stress test recently and was deemed healthy. He took 81 mg of ASA at 1999. - History of Current Complaint Chief Complaint: EDChestPainROMI Time Seen by Provider: 03/22/17 23:45 Hx Obtained From: Patient Onset/Duration: Still Present Timing: Constant, Intermittent - neck pain Initial Severity: Mild Current Severity: Mild Pain Intensity: 4 Pain Scale Used: 0-10 Numeric Chest Pain Radiates: No Associated Signs and Symptoms: Positive: Other: - neck pain, headache, diaphoresis, and diarrhea. - Allergy/Home Medications Allergies/Adverse Reactions: Allergies Allergy/AdvReac Type Severity Reaction Status Date / Time No Known Allergies Allergy Verified 12/26/16 14:48 PMH/Surg Hx/FS Hx/Imm Hx Endocrine/Hematology History: Denies: Hx Diabetes, Hx Thyroid Disease Cardiovascular History: Reports: Other Cardiovascular Problems/Disorders - basal vagal attacks, none since may 22 with nose bleed. body over heats Denies: Hx Hypertension, Hx Pacemaker/ICD Respiratory History: Denies: Hx Asthma, Hx Chronic Obstructive Pulmonary Disease (COPD), Hx Seasonal Allergies GI History: Reports: Hx Gastroesophageal Reflux Disease Denies: Hx Ulcer History: Reports: Hx Kidney Stones - 2005 Denies: Hx Renal Disease Musculoskeletal History: Reports: Hx Arthritis - bilat knees, Hx Back Problems - muscle pain, left hip pain, Other Musculoskeletal History - broken bones, jaw , nose wrist thumb Sensory History: Denies: Hx Contacts or Glasses, Hx Hearing Aid Opthamlomology History: Denies: Hx Contacts or Glasses Psychiatric History: Reports: Hx Panic Disorder - ANXIETY - Surgical History Surgery Procedure, Year, and Place: R side hernia repair 1976. ARTERY CAUTERIZED IN SINUS ABOUT 8 INCHES BACK INTO HEAD 05/2016. broken jaw repair. ROTATOR CUFF SURGERY RIGHT 06/26/16 Hx Anesthesia Reactions: No - Immunization History Date of Tetanus Vaccine: unk Date of Influenza Vaccine: unk Infectious Disease History: No Infectious Disease History: Denies: Hx Clostridium Difficile, Hx Hepatitis, Hx Human Immunodeficiency Virus (HIV), Hx of Known/Suspected MRSA, Hx Shingles, Hx Tuberculosis, Hx Known/ Suspected VRE, Hx Known/Suspected VRSA, History Other Infectious Disease, Traveled Outside the [place] in Last 30 Days - Family History Known Family History: Positive: Cardiac Disease Negative: Blood Disorder - Social History Alcohol Use: None Hx Substance Use: No Substance Use Type: Reports: None Substance Use Comment - Amount & Last Used: drinks a lot of diet sodas with caffiene Hx Tobacco Use: No Smoking Status (MU): Never Smoked Tobacco Have You Smoked in the Last Year: No Review of Systems Positive: Skin Diaphoresis Positive: Chest Pain Positive: Diarrhea Positive: Other - neck pain Positive: Headache All Other Systems Reviewed And Are Negative: Yes Physical Exam - Summary Physical Exam Summary: Appearance: Well appearing, no pain distress Skin: warm, dry, reflects adequate perfusion Head/face: normal Eyes: EOMI, ED ENT: normal Neck: supple, non-tender Respiratory: CTA, breath sounds present Cardiovascular: RRR, pulses symmetrical Abdomen: non-tender, soft Bowel: present Musculoskeletal: normal, strength/ROM intact Neuro: normal, sensory motor intact, A&Ox3 Triage Information Reviewed: Yes Vital Signs On Initial Exam: Initial Vitals Temp Pulse Resp BP Pulse Ox 98 F 70 18 141/79 96 03/22/17 22:47 03/22/17 22:47 03/22/17 22:47 03/22/17 22:47 03/22/17 22:47 Vital Signs Reviewed: Yes - [place] Coma Scale Coma Scale Total: 15 Diagnostics - Vital Signs Vital Signs Temp Pulse Resp BP Pulse Ox 03/22/17 22:47 98 F 70 18 141/79 96 - Laboratory Lab Results: Lab Results 03/22/17 03/22/17 03/22/17 Range/Units 00:01 00:01 00:01 WBC 10.8 (3.5-10.8) 10^3/ul RBC 5.00 (4.0-5.4) 10^6/ul Hgb 14.5 (14.0-18.0) g/dl Hct 43 (42-52) % MCV 85 (80-94) fL MCH 29 (27-31) pg MCHC 34 (31-36) g/dl RDW 14 (10.5-15) % Plt Count 203 (150-450) 10^3/ul MPV 8 (7.4-10.4) um3 Neut % (Auto) 59.3 (38-83) % Lymph % (Auto) 27.1 (25-47) % [place] % (Auto) 8.6 (1-9) % Eos % (Auto) 4.2 (0-6) % Baso % (Auto) 0.8 (0-2) % Absolute Neuts (auto) 6.4 (1.5-7.7) 10^3/ul Absolute Lymphs (auto) 2.9 (1.0-4.8) 10^3/ul Absolute Monos (auto) 0.9 H (0-0.8) 10^3/ul Absolute Eos (auto) 0.5 (0-0.6) 10^3/ul Absolute Basos (auto) 0.1 (0-0.2) 10^3/ul Absolute Nucleated RBC 0.01 10^3/ul Nucleated RBC % 0.1 INR (Anticoag Therapy) (0.77-1.02) APTT (26.0-36.3) seconds Sodium 136 (133-145) mmol/L Potassium 4.0 (3.5-5.0) mmol/L Chloride 103 (101-111) mmol/L Carbon Dioxide 27 (22-32) mmol/L Anion Gap 6 (2-11) mmol/L BUN 19 (6-24) mg/dL Creatinine 0.95 (0.67-1.17) mg/dL Est GFR ( Amer) 105.1 (>60) Est GFR (Non-Af Amer) 81.7 (>60) BUN/Creatinine Ratio 20.0 (8-20) Glucose 101 H (70-100) mg/dL Lactic Acid (0.5-2.0) mmol/L Calcium 9.6 (8.6-10.3) mg/dL Magnesium 1.9 (1.9-2.7) mg/dL Total Bilirubin 0.30 (0.2-1.0) mg/dL AST 18 (13-39) U/L ALT 21 (7-52) U/L Alkaline Phosphatase 66 (34-104) U/L Troponin I 0.01 (<0.04) ng/mL B-Natriuretic Peptide 19 ( - 100) pg/mL Total Protein 7.0 (6.4-8.9) g/dL Albumin 4.1 (3.2-5.2) g/dL Globulin 2.9 (2-4) g/dL Albumin/Globulin Ratio 1.4 (1-3) Lipase 31 (11.0-82.0) U/L 03/22/17 03/22/17 03/23/17 Range/Units 00:01 00:01 03:23 WBC (3.5-10.8) 10^3/ul RBC (4.0-5.4) 10^6/ul Hgb (14.0-18.0) g/dl Hct (42-52) % MCV (80-94) fL MCH (27-31) pg MCHC (31-36) g/dl RDW (10.5-15) % Plt Count (150-450) 10^3/ul MPV (7.4-10.4) um3 Neut % (Auto) (38-83) % Lymph % (Auto) (25-47) % [place] % (Auto) (1-9) % Eos % (Auto) (0-6) % Baso % (Auto) (0-2) % Absolute Neuts (auto) (1.5-7.7) 10^3/ul Absolute Lymphs (auto) (1.0-4.8) 10^3/ul Absolute Monos (auto) (0-0.8) 10^3/ul Absolute Eos (auto) (0-0.6) 10^3/ul Absolute Basos (auto) (0-0.2) 10^3/ul Absolute Nucleated RBC 10^3/ul Nucleated RBC % INR (Anticoag Therapy) 0.90 (0.77-1.02) APTT 30.5 (26.0-36.3) seconds Sodium (133-145) mmol/L Potassium (3.5-5.0) mmol/L Chloride (101-111) mmol/L Carbon Dioxide (22-32) mmol/L Anion Gap (2-11) mmol/L BUN (6-24) mg/dL Creatinine (0.67-1.17) mg/dL Est GFR ( Amer) (>60) Est GFR (Non-Af Amer) (>60) BUN/Creatinine Ratio (8-20) Glucose (70-100) mg/dL Lactic Acid 1.0 (0.5-2.0) mmol/L Calcium (8.6-10.3) mg/dL Magnesium (1.9-2.7) mg/dL Total Bilirubin (0.2-1.0) mg/dL AST (13-39) U/L ALT (7-52) U/L Alkaline Phosphatase (34-104) U/L Troponin I 0.00 (<0.04) ng/mL B-Natriuretic Peptide ( - 100) pg/mL Total Protein (6.4-8.9) g/dL Albumin (3.2-5.2) g/dL Globulin (2-4) g/dL Albumin/Globulin Ratio (1-3) Lipase (11.0-82.0) U/L Result Diagrams: 03/22/17 00:01 03/22/17 00:01 Lab Statement: Any lab studies that have been ordered have been reviewed, and results considered in the medical decision making process. - Radiology CXR Radiology Interpretation Completed By: ED Physician - no acute disease - CT CT Head CT Interpretation Completed By: Radiologist - No evidence of acute pathology ED physician has reviewed this radiology report. CT C-spine CT Interpretation Completed By: Radiologist - there is no fracture, subluxation , prevertebral soft tissue swelling. There is right uncovertebral joint hypertrophy at the C3-4 level causing mild right neural foraminal narrowing. There is a right uncovertebral joint hypertrophy bilaterally at the C4-5 and C5- 6 levels resulting in mild central canal and bilateral neural foramina. Bilateral uncovertebral joint hypertrophy is noted at the C6-7 level, asymmetric to the right causing moderate right neural foraminal narrowing. ED physician has reviewed this radiology report. - EKG 22:53 Cardiac Rate: NL EKG Rhythm: Sinus Rhythm - at 62 BPM EKG Interpretation: No acute changes - Additional Comments Diagnostic Additional Comments: US abdomen reveals, per radiology, enlarged mild fatty liver. ED physician has reviewed this radiology report Chest Pain Course/Dx - Course Assessment/Plan: This patient is a 56 year old M presenting to [facility] accompanied by his with a chief complaint of CP since 3 weeks. An EKG reveals NSR. CXR reveals, no acute disease. US abdomen reveals, per radiology , enlarged mild fatty liver. CT head reveal, per radiologist, No evidence of acute pathology. CT C-spine reveals, per radiology, there is no fracture, subluxation, prevertebral soft tissue swelling. There is right uncovertebral joint hypertrophy at the C3-4 level causing mild right neural foraminal narrowing. There is a right uncovertebral joint hypertrophy bilaterally at the C4-5 and C5-6 levels resulting in mild central canal and bilateral neural foramina. Bilateral uncovertebral joint hypertrophy is noted at the C6-7 level, asymmetric to the right causing moderate right neural foraminal narrowing. Bloodwork obtained. The patient is refusing admission and will sign out AMA. He is advised to see his PCP as soon as he can. - Chest Pain Differential Diagnosis/HQI/PQRI: Acute LA, ACS, Angina, Lower Respiratory Infection, Other: - headache - Diagnoses Provider Diagnoses: Chest pain, Headache Discharge - Discharge Plan Condition: Stable Disposition: AGAINST MEDICAL ADVICE Patient Education Materials: Chest Pain (ED), Acute Headache (ED) Referrals: Jonah Hanna MD [Primary Care Provider] - As Soon As Possible Additional Instructions: RETURN TO THE EMERGENCY DEPARTMENT FOR CHANGING OR WORSENING SYMPTOMS. The documentation as recorded by the Amy ventura Gabriel accurately reflects the service I personally performed and the decisions made by , Tom Bautista.
--- NOTE | 2017-03-23 10:12 | RAD ---
INDICATION: Chest pain COMPARISON: Most recent comparison chest x-rays dated May 29, 2016 TECHNIQUE: Single AP portable view of the chest was obtained. FINDINGS: Image quality is compromised due to the relative inferiority of a portable chest x-ray. The heart and mediastinum exhibit normal size and contour. The lungs are grossly clear. There is no evidence of a large pleural effusion. Visualized bones are normal for the patient's age. IMPRESSION: No radiographic evidence for acute cardiopulmonary abnormality on this portable chest x-ray.
--- NOTE | 2017-03-23 11:06 | RAD ---
HISTORY: Epigastric pain COMPARISONS: Similar examination dated September 22, 2014 TECHNIQUE: Multiple transverse and longitudinal ultrasound images were obtained of the right upper quadrant. FINDINGS: LIVER: The liver is enlarged measuring 23.1 cm in greatest dimension. The liver parenchyma exhibits homogenously increased echogenicity without focal suspicion mass lesions. Normal hepatic and portal venous blood flow is duplicated with color flow imaging. There is no gross intrahepatic biliary duct dilatation. GALLBLADDER AND EXTRAHEPATIC BILIARY DUCT: The gallbladder is normal in appearance without intraluminal stones or other soft tissue masses. There is no pericholecystic fluid or gallbladder wall thickening. The common bile duct measures a maximum diameter of 6 mm. PANCREAS: Overlying bowel gas prevents reliable evaluation of the pancreas. RIGHT KIDNEY: The right kidney is normal in size, morphology and echogenicity. AORTA AND IVC: The visualized portions are normal in appearance and not pathologically dilated. 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
--- NOTE | 2017-03-23 12:53 | RAD ---
indication: Headache and neck pain COMPARISON: None A CT scan of the brain and c-spine was performed without intravenous contrast enhancement. Contiguous axial sections were obtained from the lung apices through the vertex. BRAIN: The ventricles, cisterns and sulci are within normal limits. No significant focal abnormality or mass effect is seen. The guardado-white differentiation is adequately maintained. There is no evidence for intracranial hemorrhage. No significant bony abnormality is present. The mastoid air cells are appropriately aerated. The visualized paranasal sinuses are clear. C-SPINE: On the sagittal view imaging there is nonspecific straightening of the normal cervical lordosis. There is loss of intervertebral disc height at the mid-level and lower cervical spine most severely affecting C6/C7. On the coronal plane images there is uncovertebral hypertrophy also most severe at C6/C7. Foci of gas at this level indicate a small degree of vacuum disc phenomenon. There are multiple levels of broad-based intervertebral disc protrusion causing mild central canal or neural foraminal stenoses. The most severe appearance is at C5/C6 and C6/C7. There is no evidence of an acute fracture or dislocation. There is no hyperdense material in the cervical canal to indicate hemorrhage. The visualized musculature and soft tissues are normal. There is no gross lymphadenopathy visualized. The visualized portion of the lung apices are clear. IMPRESSION: 1. No acute intracranial abnormality. 2. Multilevel degenerative changes of the cervical spine including central canal or neural foraminal stenoses at the lower cervical spine. As clinically warranted superior characterization could be made with MRI of the cervical spine.
== END 2017-03-23 04:44 | disposition left against medical advice (07) ==
LOC: ED 22:43
DX: R07.9 Chest pain, unspecified (principal); M54.2 Cervicalgia; R51 Headache; R19.7 Diarrhea, unspecified
CPT/HCPCS: 36415; 70450; 71010; 72125; 76705; 80053; 83605; 83690; 83735; 83880; 84484; 85025; 85610; 85730; 93005; 99283; A9270-GY

== ENCOUNTER 2017-05-04 20:32 | Emergency (ER) | payer BC ==
[2017-05-04] MEDS ORDERED: Al Hydrox/Mg Hydrox/Simet LIQ* 30 ML UDC PO ONE (21:24)
[2017-05-04] MEDS ORDERED: Lidocaine 2% VISCOUS* 15 ML UDC PO ONE (21:24)
[2017-05-04] MEDS ORDERED: Pantoprazole IV* 40 MG IV ONE (21:25)
[2017-05-04 21:37] LABS: ABS Basophils 0.1 10^3/ul (0-0.2); ABS Eosinophils 0.5 10^3/ul (0-0.6); ABS Lymphocytes 2.7 10^3/ul (1.0-4.8); ABS Monocytes 0.8 10^3/ul (0-0.8); ABS Neutrophils 4.8 10^3/ul (1.5-7.7); ABS Nucleated RBC 0 10^3/ul; Eosinophil % 5.3 % (0-6); Hematocrit 43 % (42-52); Hemoglobin 14.4 g/dl (14.0-18.0); Lymphocyte % 30.2 % (25-47); Mean Corpuscular HGB Conc 34 g/dl (31-36); Mean Corpuscular Hemoglobin 29 pg (27-31); Mean Corpuscular Volume 85 fL (80-94); Mean Platelet Volume 9 um3 (7.4-10.4); Nucleated Red Blood Cells % 0.1; Platelet Count 197 10^3/ul (150-450); Red Blood Count 4.97 10^6/ul (4.0-5.4); Red Cell Distribution Width 14 % (10.5-15); White Blood Count 8.8 10^3/ul (3.5-10.8)
[2017-05-04 21:47] LABS: INR 0.98 (0.77-1.02)
[2017-05-04 21:51] LABS: EGFR Non-African American 90.4 (>60)
--- NOTE | 2017-05-04 22:17 | RAD ---
Indication: Chest pain. Comparison: March 23, 2017 Technique: Upright AP 2150 hours Report: The LEFT costophrenic angle is partially excluded from the [id number]. The visualized lungs and pleural spaces are clear. Negative for pneumothorax. Cardiomegaly. Unremarkable central pulmonary vasculature and mediastinal contours. IMPRESSION: Cardiomegaly without evidence for pulmonary edema. No acute cardiopulmonary process evident.
[2017-05-04 22:44] VITALS: BP 136/81
--- NOTE | 2017-05-04 23:02 | ED ---
Chani Evangelista Abhishek, scribed for Freedom Reeder MD on 05/04/17 at 2130 . HPI Chest Pain - HPI Summary HPI Summary: This patient is a 56 year old M presenting to [facility] with a chief complaint of chest pain since 329 this morning. The pain is described to have originated on the left side and currently present on the right side. Pertinent PMHx includes GERD and pt states he has had other gastrointestinal problems. Pt describes the pain as a burning pain that lasted for seconds. No other symptoms were reported and there is no radiation of pain to other areas of the body. The patient rates the pain 5/10 in severity. Symptoms aggravated by nothing. Symptoms alleviated by nothing. - History of Current Complaint Chief Complaint: EDChestPainROMI Time Seen by Provider: 05/04/17 21:07 Hx Obtained From: Patient Onset/Duration: Started Hours Ago - 329 on 05/04/17 Timing: Lasting Seconds Initial Severity: Moderate Current Severity: Moderate Pain Intensity: 5 Pain Scale Used: 0-10 Numeric Chest Pain Location: Left Anterior, Right Anterior Character: Burning Aggravating Factor(s): Nothing Alleviating Factor(s): Nothing Associated Signs and Symptoms: Positive: Other: - "Burning" located at the chest - Allergy/Home Medications Allergies/Adverse Reactions: Allergies Allergy/AdvReac Type Severity Reaction Status Date / Time No Known Allergies Allergy Verified 05/04/17 20:41 PMH/Surg Hx/FS Hx/Imm Hx Endocrine/Hematology History: Denies: Hx Diabetes, Hx Thyroid Disease Cardiovascular History: Reports: Other Cardiovascular Problems/Disorders - basal vagal attacks, none since may 22 with nose bleed. body over heats Denies: Hx Hypertension, Hx Pacemaker/ICD Respiratory History: Denies: Hx Asthma, Hx Chronic Obstructive Pulmonary Disease (COPD), Hx Seasonal Allergies GI History: Reports: Hx Gastroesophageal Reflux Disease Denies: Hx Ulcer History: Reports: Hx Kidney Stones - 2005 Denies: Hx Renal Disease Musculoskeletal History: Reports: Hx Arthritis - bilat knees, Hx Back Problems - muscle pain, left hip pain, Other Musculoskeletal History - broken bones, jaw , nose wrist thumb Sensory History: Denies: Hx Contacts or Glasses, Hx Hearing Aid Opthamlomology History: Denies: Hx Contacts or Glasses Psychiatric History: Reports: Hx Panic Disorder - ANXIETY - Surgical History Surgery Procedure, Year, and Place: R side hernia repair 1976. ARTERY CAUTERIZED IN SINUS ABOUT 8 INCHES BACK INTO HEAD 05/2016. broken jaw repair. ROTATOR CUFF SURGERY RIGHT 06/26/16 Hx Anesthesia Reactions: No - Immunization History Date of Tetanus Vaccine: unk Date of Influenza Vaccine: unk Infectious Disease History: No Infectious Disease History: Denies: Hx Clostridium Difficile, Hx Hepatitis, Hx Human Immunodeficiency Virus (HIV), Hx of Known/Suspected MRSA, Hx Shingles, Hx Tuberculosis, Hx Known/ Suspected VRE, Hx Known/Suspected VRSA, History Other Infectious Disease, Traveled Outside the [place] in Last 30 Days - Family History Known Family History: Positive: Cardiac Disease Negative: Blood Disorder - Social History Alcohol Use: None Hx Substance Use: No Substance Use Type: Reports: None Substance Use Comment - Amount & Last Used: drinks a lot of diet sodas with caffiene Hx Tobacco Use: No Smoking Status (MU): Never Smoked Tobacco Have You Smoked in the Last Year: No Review of Systems Constitutional: Negative Eyes: Negative ENT: Negative Positive: Chest Pain - "burning" sensation that lasted for seconds Respiratory: Negative Gastrointestinal: Negative Positive: no symptoms reported Musculoskeletal: Negative Skin: Negative Neurological: Negative Psychological: Normal All Other Systems Reviewed And Are Negative: Yes Physical Exam - Summary Physical Exam Summary: VITAL SIGNS: Reviewed. GENERAL: ~Patient is an obese (MALE) who is lying comfortable in the stretcher. Patient is not in any acute respiratory distress. HEAD AND FACE: No signs of trauma. No ecchymosis, hematomas or skull depressions. No sinus tenderness. EYES: PERRLA, EOMI x 2, No injected conjunctiva, no nystagmus. EARS: Hearing grossly intact. Ear canals and tympanic membranes are within normal limits. MOUTH: Oropharynx within normal limits. NECK: Supple, trachea is midline, no adenopathy, no JVD, no carotid bruit, no c- spine tenderness, neck with full ROM. CHEST: Symmetric, no tenderness at palpation LUNGS: Clear to auscultation bilaterally. No wheezing or crackles. CVS: Regular rate and rhythm, S1 and S2 present, no murmurs or gallops appreciated. ABDOMEN: Soft, non-tender. No signs of distention. No rebound no guarding, and no masses palpated. Bowel sounds are normal. EXTREMITIES: FROM in all major joints, no edema, no cyanosis or clubbing. NEURO: Alert and oriented x 3. No acute neurological deficits. Speech is normal and follows commands. SKIN: Dry and warm Triage Information Reviewed: Yes Vital Signs On Initial Exam: Initial Vitals Temp Pulse Resp BP Pulse Ox 98.3 F 72 18 140/85 100 05/04/17 20:38 05/04/17 20:38 05/04/17 20:38 05/04/17 20:38 05/04/17 20:38 Vital Signs Reviewed: Yes Diagnostics - Vital Signs Vital Signs Temp Pulse Resp BP Pulse Ox 05/04/17 20:38 98.3 F 72 18 140/85 100 - Laboratory Result Diagrams: 05/04/17 21:20 05/04/17 21:20 Lab Statement: Any lab studies that have been ordered have been reviewed, and results considered in the medical decision making process. - Radiology Chest X-ray Radiology Interpretation Completed By: Radiologist - CXR reveals, per radiologist, Cardiomegaly without evidence for pulmonary edema. No acute cardiopulmonary process evident. ED physician has reviewed this radiology report and agrees. - EKG 2033 EKG Rhythm: Sinus Rhythm - 65 bpm EKG Interpretation: Sinus at 65 bpm, non specific T wave changes in the inferior leads at 2033 Chest Pain Course/Dx - Course Course Of Treatment: The pt is a 56 y/o male with a CC of chest pain. The pain is described as a burning pain that began at 0330 and lasted for seconds. The pt had an EKG taken at 2033 that revealed Sinus at 65 bpm and non specific T- wave changes in the inferior leads. Pt also recieved at a chest X-ray reveals per radiologist, Cardiomegaly without evidence for pulmonary edema. No acute cardiopulmonary Process evident. ED physician has reviewed this radiology report and agrees. The Pt will be d/c at home and with a dx will be atypical chest pain. - Diagnoses Provider Diagnoses: Atypical chest pain Discharge - Discharge Plan Condition: Stable Disposition: HOME Prescriptions: Pantoprazole TAB (NF) [Protonix TAB (NF)] 40 mg PO DAILY #30 tab Patient Education Materials: Chest Pain (ED) Referrals: Jonah Hanna MD [Primary Care Provider] - (Follow up with PCP within 2 to 3 days.) Additional Instructions: RETURN TO EMERGENCY DEPARTMENT FOR ANY NEW OR WORSENING SYMPTOMS The documentation as recorded by the Chani ventura Abhishek accurately reflects the service I personally performed and the decisions made by me, Freedom Reeder MD.
== END 2017-05-04 22:43 | disposition home or self-care (01) ==
LOC: ED 20:32
DX: R07.89 Other chest pain (principal); K21.9 Gastro-esophageal reflux disease without esophagitis
CPT/HCPCS: 36415; 71045; 80053; 82550; 83605; 84484; 85025; 85610; 85730; 93005; 96374; 99285; A9270-GY

== ENCOUNTER → 2017-10-24 09:09 | Day surgery (SDC) | payer BC ==
--- NOTE | 2017-09-29 06:49 | HP ---
HISTORY AND PHYSICAL: DATE OF ADMISSION: 10/24/17 DATE OF HISTORY AND PHYSICAL: 09/25/17 DATE OF SURGERY: 10/24/17 ATTENDING PHYSICIAN: Dr. Hollingsworth.* (DICTATED BY DIRK MCDAAMS) SURGEON: Stevie Hollingsworth MD PROCEDURE: Left knee arthroscopy partial meniscectomy medial. CHIEF COMPLAINT: Left knee pain. HISTORY OF PRESENT ILLNESS: The patient is a 56-year-old man, just over a year status post 06/26/2016 right shoulder surgery by me, whom I have followed since 2017 for pain and a medial meniscus tear in the left knee. The patient has had left knee pain since October 2016, 11 months ago. There was a discrete injury. The patient caught his left foot and it twisted awkwardly resulting in awkward twisting of the left knee. This produced medial knee pain and swelling. The patient had significant stiffness. The patient had locking two to three times a day at first and then two to three times a week. The patient was having trouble sleeping given the pain and swelling. I first discussed this injury and pain with the patient at his 12/19/2016 clinic visit. I diagnosed him with left knee pain, possible meniscus tear, and ordered an MRI given the mechanical symptoms. MRI from 12/27/2016 showed an oblique and horizontal tear of the undersurface of the medial meniscus body. Radiologist described a peripherally flipped fragment of meniscus. I thought I saw one coronal slice where there might be a fragment into the inferomedial gutter. However, there was also some thinning of the articular cartilage in that medial compartment including some focal very small defects consistent with the patient's x-rays findings of mild to moderate knee osteoarthritis. I treated the patient on the 12/31/2016 clinic visit with a cortisone injection left knee, physical therapy, and home exercises. The patient turned to see me on 01/28/2017 and had had significant improvement with no more locking and catching. The patient was back to working full-time. The patient presents today, complaining of a significant increase in that left knee pain. The patient states that he had a recent injury approximately eight to nine days ago in late August 2017. This injury was at work. The patient was slammed and crushed between several objects. After the injury the patient had right knee pain, a cut on his forehead and on his left hand, and bruising of bilateral knees. Since that accident the patient has had catching and locking of the left knee two to three times a day. Even before this August 2017 injury the patient had 1-2/10 medial sided left knee pain. 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 No numbness or tingling. No other joint pain. No complaints regarding his surgically corrected right shoulder. No history of problems with anesthesia. No personal or family history of DVT or PE. PAST MEDICAL HISTORY: Epistaxis and anxiety. PAST SURGICAL HISTORY: Nose cauterization and right shoulder rotator cuff repair, right hernia repair, wisdom tooth extraction. CURRENT MEDICATIONS: 1. Naproxen as needed. 2. Clonazepam 0.5 mg p.r.n. ALLERGIES: No known drug allergies. SOCIAL HISTORY: The patient is a nonsmoker. He denies any alcohol use. He does not use any illicit drugs. REVIEW OF SYSTEMS: See physical exam. The patient endorses his presenting complaints as outlined in the HPI as well as inability of walk of flight of stairs without stopping due to chest pain. Otherwise, a 14-point system review was negative. PHYSICAL EXAMINATION GENERAL: Well-nourished, well-developed, in no acute distress. Alert and oriented x3, pleasant mood and affect. HEENT: Normocephalic, atraumatic. Pupils equally round and reactive. Extraocular movements intact. No palpable cervical lymph nodes. Thyroid is smooth and nontender. PULMONARY: Lungs are clear to auscultation bilaterally with no wheezes, rales or rhonchi. CARDIAC: Regular rate and rhythm. No murmurs, rubs or gallops. MUSCULOSKELETAL: Left lower extremity: Skin of left knee is intact. No soft tissue swelling or bruising. No knee effusion. Passive range of motion is 0 to 120 degrees. He has medial joint line tenderness. Positive medial pain with Santo's testing. No pain or laxity with ligamentous stress testing. No patellofemoral compartment tenderness to palpation. Neurovascularly intact distally. DIAGNOSTIC STUDIES/LAB DATA: No new studies performed today. Images: Multiple views of the left knee were obtained and have been reviewed in clinic today. These show tricompartmental osteoarthritis with no effusion. No fracture or dislocation. ASSESSMENT: 1. Unilateral osteoarthritis of the left knee. 2. Medial meniscal tear, left knee. 3. Pain in left knee. PLAN: 1. Mr. Hindu is scheduled to undergo a left knee arthroscopic partial meniscectomy medial on 10/24/[address] Stevie Hollingsworth. Pain medication will be prescribed on date of surgery. He will require aspirin for DVT prophylaxis. We will start physical therapy immediately after his surgery. 2. The patient has had left knee symptoms for 11 months that started with an acute injury. He has had mechanical symptoms including locking of the knee multiple times per day. He has tried cortisone, physical therapy, home exercises, and NSAIDS. Therefore, despite the existence of some arthritis in the medial aspect of that knee, I believe it is worth it to perform a partial medial meniscectomy. The patient is certainly interested in this. DIRK MCADAMS [id number]/[facility] #: [id number] FRANK
[~2017-10-24 09:09] MED LIST changes: +Acetaminophen TAB* 325 MG PO PRN; +Buffered Lidocaine 0.9% SYRIN* 5 ML/SYR SYRINGE INTRADERM ONE; -Buffered Lidocaine 1% SYRIN* 3 ML/SYR SYRINGE INTRADERM ONE; +Bupivacaine 0.5% PF 10 ML VIAL INJ ONE; -Bupivacaine 0.5% W/EPI SDV* 30 ML VIAL ONE; +DiMENhydriNATE IV* 50 MG/ML VIAL IV PUSH PRN; -DiMENhydriNATE IV* 50 MG/ML VIAL ONE; +EPHEDrine (Pressors)* 50 MG/ML VIAL ONE; +EPINEPHRINE 1 MG/ML 1 ML VIAL ONE; -EPINEPHrine AMP 1 MG/ML ONE; -Famotidine IV* 10 MG/ML 2 ML (20 mg) IV ONE; -Famotidine IV* 10 MG/ML 2 ML (20 mg) ONE; -Glycopyrrolate IV* 0.2 MG/ML 1 ML VIAL ONE; -HYDROmorphone* 1 MG/ML 1 ML SYR IV PRN; -HYDROmorphone* 1 MG/ML 1 ML SYR ONE; -KETAMINE HCL* 50 MG/ML 10 ML VIAL ONE; -Ketorolac INJ* 30 MG/ML 1 ML VIAL ONE; -Lidocaine 2% PF* 5 ML VIAL ONE; -Midazolam* 1 MG/ML 5 ML VIAL (5 MG) ONE; +Naloxone* 0.4 MG/ML 1 ML VIAL IV PRN; +Ondansetron INJ* 2 MG/ML VIAL IV PRN; -ROPIVACAINE 5 MG/ML 30 ML BTL (0.5%) ONE; -Succinylcholine* 20 MG/ML 10 ML VIAL ONE; +ceFAZolin 1 GM in Dextrose (*) 1 GM/50 ML BAG IVPB ONE; +ceFAZolin 2 GM PREMIX (*) 2 GM/50 ML BAG IVPB ONE; -ceFAZolin 2 GM PREMIX(*) 2 GM/50 ML BAG IVPB ONE; -diPHENhydraMINE IV* 50 MG/ML 1 ml VIAL (BENADRYL) IV PRN; +fentaNYL* 50 MCG/ML 2 ML VIAL (100 MCG VIAL) IV PRN; -fentaNYL* 50 MCG/ML 2 ML VIAL (100 MCG VIAL) ONE; +fentaNYL* 50 MCG/ML 5 ML VIAL (250 MCG VIAL) ONE; +oxyCODONE/Acetamin 5/325 MG* TAB ONE
[2017-10-24 13:39] VITALS: BP 131/83
--- NOTE | 2017-10-25 01:57 | OP ---
OPERATIVE REPORT: DATE OF OPERATION: 10/24/17 DATE OF : 58 SURGEON: Stevie Hollingsworth MD KETTLE FRY COOK OPERATOR: DIRK Silva A physician assistant editor was required for the length of the procedure for knee positioning, body positio odilon and closure assistance. ANESTHESIOLOGIST: Tushar Balderas. ANESTHESIA: General anesthesia, local anesthesia with 23 cc of 0.5% Marcaine without epinephrine. PRE-OP DIAGNOSIS: Left knee medial meniscus tear. POST-OP DIAGNOSIS: Left knee medial meniscus tear. OPERATIVE PROCEDURE: Left knee arthroscopic partial medial meniscectomy. ANTIBIOTICS: 3 g Ancef IV. IV FLUIDS: 500 cc crystalloid. TOURNIQUET TIME: 25 minutes at 300 mmHg. [id number] TIME: 21 minutes. Arthroscopy fluid utilized just over one 3 L bag for a total of 4 L. COMPLICATIONS: None. SPECIMEN: None. IMPLANTS: None. ESTIMATED BLOOD LOSS: Minimal. INDICATIONS FOR PROCEDURE: The patient is a 57-year-old man, known to me from prior surgeries, who i njured his left knee with the discrete incident in October 2016, almost 12 months prior to surgery. S ee history and physical for full details. The patient responded insufficiently to nonoperative manag ement. MRI seemed to indicate a displaced fragment in the inferomedial gutter. The patient had mech anical symptoms in the distant past and then those recurred more recently and the patient finally dec ided he needed surgery. Discussed risks and potential complications with the patient preoperatively, including bleeding, infe ction, nerve or blood vessel injury, knee arthritis, stiffness, pain. DESCRIPTION OF PROCEDURE: Preoperative written consent was obtained in preoperative holding. Operat davon extremity was marked in preoperative holding. The patient was taken back to the operating room and placed supine on operating room table. The tea ent was sedated and intubated. A tourniquet was placed above the left proximal thigh. Distal thigh was placed in a circumferential thigh long. The table was elevated and the foot of the table was d ropped. The left lower extremity was prepped and then draped. Surgical timeout was performed. Esmar ch was applied and the tourniquet was elevated to 300 mmHg. Left knee anterolateral knee arthroscopy portal was established using standard technique. Diagnostic arthroscopy was started. The patient had some diffuse grade 1 to 3 articular cartilage changes in t he patellofemoral compartment. Some minimal bursitis appreciated anteriorly during the view of that compartment. I then dropped down to the lateral compartment and moved immediately to the intercondyl ar notch and then to the medial compartment. Evaluation of the medial compartment revealed just some grade 1 articular cartilage changes throughou t the medial compartment. There was a clear meniscus tear in the body and posterior horn of the medi al meniscus. There appeared to be a parrot-beak type fragment flap of the body, but as well some com plex shaped tearing. With the knee in some valgus I established an anteromedial portal under direct visualization. The me dial meniscus was debrided back to a stable rim using arthroscopic shaver and meniscus biters working from the anteromedial and anterolateral portals. I confirmed stability of the repair and no additio nal flaps. There was still meniscal rim present after debridement. Over the course of my removal of meniscus for improved visualization and to decrease the presence of the pain generator I debrided the ligamentum mucosum and some synovitis anteriorly. This opened up t he anterior aspect of the knee nicely. I then looked the intercondylar notch, more thoroughly and fou nd the ACL and PCL to be intact. Lateral compartment showed no articular cartilage injury nor any la teral meniscus injury. I returned quickly to the patellofemoral compartment. I was able to see more clearly the chondral changes in the patella and there appeared to be some spurring about the distal end of the patella. Fluid and instruments were removed from the knee. The skin incisions were closed with figure of 8 an d 12 stitches using nylon 3.0 suture. It should be noted that during the course of my partial medial meniscectomy for improved orientation and working, I created a second anterolateral portal. After p ortals have been enclosed local anesthesia was injected into the subcutaneous tissues surrounding the m, a total of 23 cc of 0.5% Marcaine without epinephrine. Xeroform, 4x4's, sterile Webril, Jr king ge from foot to proximal thigh. Tourniquet was then removed. Cooling unit was applied. The patient was awakened and extubated and brought to the PACU. DISPOSITION: The patient will start physical therapy immediately. Wound care instructions were prov ided. Percocet as needed for pain control and aspirin x2 weeks for DVT prophylaxis. Follow up with me in 2 weeks postoperatively. [id number]/[facility] #: [id number]
== END | disposition home or self-care (01) ==
LOC: OR 09:09
PROVIDERS: ATTEND Orthopaedic Surgery
DX: S83.232A Complex tear of medial meniscus, current injury, left knee, initial encounter (principal); M17.12 Unilateral primary osteoarthritis, left knee; E66.01 Morbid (severe) obesity due to excess calories; K21.9 Gastro-esophageal reflux disease without esophagitis; F41.9 Anxiety disorder, unspecified; X50.0XXA Overexertion from strenuous movement or load, initial encounter; Y92.9 Unspecified place or not applicable
CPT/HCPCS: A9270-GY; J0690; J1100; J2250; J2405; J2704; J3010

== ENCOUNTER 2018-10-11 10:25 | Emergency (ER) | payer BC ==
--- OUTSIDE RECORDS SUMMARY | 2018-10-11 10:32 | XMS REPORT | Continuity of Care Document ---
:1960 External Reference #:[id number] Author Name Lottie Barr NP Address [address] 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 Onset: 05/23/2014 Backache Jonah Hanna M.D. Onset: 05/23/2014 Abrasion and/or friction burn of face without Jonah Hanna M.D. Onset: 04/2014 infection Chest pain Jonah Hanna M.D. Onset: 09/20/2014 Gastroesophageal reflux disease Jonah Hanna M.D. Onset: 09/20/2014 Benign prostatic hypertrophy without outflow Jonah Hanna M.D. Onset: obstruction Generalized anxiety disorder Jonah Hanna M.D. Onset: 03/14/2015 Radiculopathy, cervical region Jonah Hanna M.D. 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 Day as Needed For Pain With Food Hydrocodone-Acetamino 1 by mouth every 30tabs Jonah Hanna, 02/06/2016 phen 6 hours as needed M.D. 10-325mg Tablets pain Clonazepam Take 1/2 - 1 45tabs Jonah Hanna, 12/24/2013 0.5mg Tablet By Mouth M.D. Tablets Every 8 Hours as Needed For Anxiety / Insomnia Maximum Daily Dose=Three Tablets Pantoprazole Sodium 1 by mouth every Unknown day 40mg Tablets DR History Medications Sertraline HCL 1/2 by mouth 30tabs Kriss 03/31/2018 - 50mg every day x 1week [facility], 10/06/2018 Tablets then 1 by mouth Afnp-C every day Lidocaine Viscous swish and swallow 100ml K21.9 Ingris Mao 05/09/2017 - 2% 5ml twice a day CRIS Nicholas 10/06/2017 Solution as needed for upset stomach - do not eat/drink for 1 hour after GI cocktail Carafate mix 1 tablet with 14tabs K21.9 Ingris Mao 05/09/2017 - 1gm Tablets 5mL of water, CRIS Nicholas 10/06/2017 take twice a day as needed for GI upset Nexium Take One Capsule 30caps K21.9 Jonah Hanna, 06/21/2016 - 20mg Capsules DR By Mouth Every M.D. 05/07/2017 Day as Needed For Acid Reflux Bactroban apply to affected 15gm Kriss 02/06/2016 - 2% Cream area on back of [facility], 02/13/2016 neck twice a day Afnp-C x 5- 7 days Physical Therapy treatment and Kriss 02/06/2016 - evaluation of [facility], 06/21/2016 bilat shoulder Afnp-C pain r>l. ac arthritis on r via x-ray Note Due To Health pt has been seen Kriss 01/30/2016 - Issues in this office [facility], 02/01/2016 for shoulder Afnp-C problems Tramadol HCL 1-2 by mouth 30tabs M25.51 Kriss 01/15/2016 - 50mg every 6 hours as 1 [facility], 02/06/2016 Tablets needed for pain Afnp-C Medrol dose-pack by 1pack M25.51 Kriss 01/15/2016 - 4mg Tablets mouth as 1 [facility], 01/22/2016 instructed, take Afnp-C with food Meloxicam take 1 tab daily 30tabs 786.59 Jonah Hanna, 09/20/2014 - 15mg Tablets with food for M.D. 03/14/2015 arthritis and inflamation Cephalexin 1 by mouth three 21tabs 782.9 Ashley Santamaria, 09/02/2014 - 500mg times a day x 7 [employer] 09/09/2014 Tablets days Topicort rub in sparingly 30units 782.9 Ashley Santamaria, 09/02/2014 - 0.25% Cream twice a day as [employer] 01/15/2016 needed Nexium 1 by mouth every 30caps Jonah Hanna, 05/23/2014 - 40mg Capsules DR day M.D. 01/15/2016 No Active Medications Unknown 12/21/2013 - 12/21/2013 Keflex 1 by mouth three 30caps 782.1 Kriss 12/21/2013 - 500mg Capsules times a day [facility], 05/23/2014 Afnp-C Naproxen 1 by mouth twice 60tabs M54.5 Jonah Hanna, 12/21/2013 - 500mg Tablets a day as needed M.D. 06/21/2016 for pain take with food Cephalexin 1 po bid 20caps Jonah Hanna, 11/13/2012 - 500mg M.D. 12/21/2013 Capsules Ciprofloxacin HCL two drops in 1bottle 372.00 Deysi 10/19/2012 - 0.3% affected eye ONEIL Arroyo 12/21/2013 Solution every two hours for two days then every four hours for 5 days Hydrocortisone apply to affected 28gm 782.1 Deysi 10/19/2012 - 2.5% areas face, hips [facility] 12/21/2013 Cream bid Note Rafael Connolly 05/21/2004 - Aldo Tamayo 06/29/2004 Vicodin 1 qID prn 40units Jonah Hanna, 07/01/2003 - 10/325 M.DRajni 12/04/2011 Naproxen 1 twice a day 60units 724.2 Kriss 06/30/2003 - 500mg with food as [place], 12/21/2013 needed back pain Afnp-C Flexeril 1 po tid prn 30tabs 724.2 Deysi 06/30/2003 - 10mg Tabs muscle spasm [facility] 12/21/2013 Medrol Dosepack as Directed 1unajmes Ferrer 12/09/2002 - 4mg Aldo Arreola 12/21/2002 Carpal Tunnel Splint 1 Large Splint 1units Zach Ferrer 12/09/2002 - Aldo Arreola 12/21/2002 Triamcinolone Cream Use tid as Needed 30gm Jonah Hanna, 11/02/2001 - Aldo 12/09/2002 0.1% Prednisone 1 bid X 4 Days 14units Jonah Hanna, 11/02/2001 - 20mg Then 1 qd X 4 M.D. 12/09/2002 Days Then 1/2 qd X 4 Atarax 1 PO tid prn 30tabs Jonah Hanna, 11/02/2001 - 25mg Tabs Itching M.D. 12/09/2002 Xanax One tid prn 15units Damno Cox 09/25/2001 - .25mg ShallishAldo 12/09/2002 Trazadone 1-3 PO QHS prn 30units Jonah Hanan, 09/04/2001 - 50mg M.D. 12/09/2002 Celebrex 1 PO qd 12Sampheather Suarez 04/14/2001 - 200mg Tabs Aldo Reynolds 12/09/2002 Viagra Use as Directed 6units Damon Cox 04/14/2001 - 50mg prn Aldo Neumann 12/09/2002 Zithromax 2 Tabs Day 1 6unjames RosenbergRajni 03/28/2000 - 250mg Aldo Reynolds 04/02/2000 1 Tab qd Days 2 Thru 5 Medrol as Directed 1unjamse RosenbergRajni 01/02/2000 - Dose Pack Aldo Reynolds 01/08/2000 Atarax 1 Tab tid prn 24unjames RosenbergRajni 01/02/2000 - 25mg Tab Itching Aldo Reynolds 01/12/2000 Keflex 1 PO bid 20tabs Kriss 06/13/1998 - 5Oomg Tabs [place], 06/23/1998 Afnp-C Immunizations CPT Code Status Date Vaccine Lot # [id number] Given 03/14/2015 Tdap Tetanus, W Pertussis [id number] Vital Signs Date Vital Result Comment 10/06/2018 11:17am BP Systolic 120 mmHg BP Diastolic 64 mmHg Heart Rate 76 /min Body Temperature 98.0 F Respiratory Rate 16 /min Height 68.25 inches 5'8.25" measured 03/14/15 Weight 295.00 lb BMI (Body Mass Index) 44.5 kg/m2 06/12/2018 8:02am BP Systolic 122 mmHg BP Diastolic 60 mmHg Heart Rate 72 /min Body Temperature 98.6 F Respiratory Rate 16 /min Height 68.25 inches 5'8.25" measured 03/14/15 Weight 286.00 lb BMI (Body Mass Index) 43.2 kg/m2 06/11/2018 10:03am BP Systolic 110 mmHg BP Diastolic 74 mmHg Heart Rate 60 /min Body Temperature 98.8 F Height 68.25 inches 5'8.25" measured 03/14/15 04/13/2018 10:29am BP Systolic 112 mmHg BP Diastolic 62 mmHg Heart Rate 80 /min Body Temperature 97.8 F Height 68.25 inches 5'8.25" measured 03/14/15 Weight 294.00 lb BMI (Body Mass Index) 44.4 kg/m2 Right Visual Acuity Distance 20/30 Left Visual Acuity Distance 20/30 both 20/25 03/31/2018 10:47am BP Systolic 104 mmHg BP Diastolic 56 mmHg Heart Rate 66 /min Body Temperature 98.4 F Respiratory Rate 18 /min Height 68.25 inches 5'8.25" measured 03/14/15 Weight 294.00 lb BMI (Body Mass Index) 44.4 kg/m2 10/06/2017 9:50am BP Systolic 110 mmHg BP Diastolic 72 mmHg Heart Rate 80 /min Body Temperature 98.2 F Height 68.25 inches 5'8.25" measured 03/14/15 Weight 280.00 lb BMI (Body Mass Index) 42.3 kg/m2 05/09/2017 9:39am BP Systolic 120 mmHg BP Diastolic 78 mmHg Heart Rate 72 /min Body Temperature 97.9 F Respiratory Rate 18 /min Height 68.25 inches 5'8.25" measured 03/14/15 Weight 301.00 lb BMI (Body Mass Index) 45.4 kg/m2 05/07/2017 9:31am BP Systolic 118 mmHg BP Diastolic 72 mmHg Heart Rate 80 /min Body Temperature 97.9 F Respiratory Rate 16 /min Height 68.25 inches 5'8.25" measured 03/14/15 Weight 295.00 lb BMI (Body Mass Index) 44.5 kg/m2 03/27/2017 11:46am BP Systolic 122 mmHg BP Diastolic 80 mmHg Heart Rate 78 /min Body Temperature 99.0 F Respiratory Rate 16 /min Height 68.25 inches 5'8.25" measured 03/14/15 Weight 302.00 lb BMI (Body Mass Index) 45.6 kg/m2 06/21/2016 4:44pm BP Systolic 132 mmHg BP Diastolic 76 mmHg Heart Rate 88 /min Body Temperature 98.6 F Respiratory Rate 18 /min Height 68.25 inches 5'8.25" measured 03/14/15 Weight 309.38 lb BMI (Body Mass Index) 46.7 kg/m2 02/06/2016 1:30pm BP Systolic 124 mmHg BP Diastolic 78 mmHg Heart Rate 84 /min Body Temperature 98.2 F Respiratory Rate 18 /min Height 68.25 inches 5'8.25" measured 03/14/15 Weight 305.00 lb BMI (Body Mass Index) 46.0 kg/m2 01/15/2016 1:05pm BP Systolic 120 mmHg BP Diastolic 80 mmHg Heart Rate 88 /min Body Temperature 98.2 F Respiratory Rate 18 /min Height 68.25 inches 5'8.25" measured 03/14/15 Weight 305.00 lb BMI (Body Mass Index) 46.0 kg/m2 03/14/2015 3:27pm BP Systolic 120 mmHg BP Diastolic 60 mmHg Heart Rate 66 /min Body Temperature 97.9 F Respiratory Rate 16 /min Height 68.25 inches 5'8.25" measured 03/14/15 Weight 295.50 lb BMI (Body Mass Index) 44.6 kg/m2 Right Visual Acuity Distance 20/25 Left Visual Acuity Distance 20/20 09/20/2014 2:59pm BP Systolic 118 mmHg BP Diastolic 74 mmHg Heart Rate 80 /min Body Temperature 98.6 F Respiratory Rate 18 /min Height 70 inches 5'10" Weight 296.50 lb BMI (Body Mass Index) 42.5 kg/m2 09/02/2014 10:46am BP Systolic 138 mmHg BP Diastolic 84 mmHg Heart Rate 78 /min Body Temperature 98.0 F Respiratory Rate 18 /min Height 70 inches 5'10" Weight 297.00 lb BMI (Body Mass Index) 42.6 kg/m2 05/23/2014 1:22pm BP Systolic 132 mmHg BP Diastolic 82 mmHg Heart Rate 72 /min Body Temperature 97.5 F Height 70 inches 5'10" Weight 296.00 lb BMI (Body Mass Index) 42.5 kg/m2 12/21/2013 4:53pm BP Systolic 134 mmHg BP Diastolic 80 mmHg Heart Rate 72 /min Body Temperature 98.4 F Respiratory Rate 18 /min Height 70 inches 5'10" Weight 290.00 lb BMI (Body Mass Index) 41.6 kg/m2 10/19/2012 3:34pm BP Systolic 122 mmHg BP Diastolic 86 mmHg Heart Rate 78 /min Body Temperature 97.7 F Height 70 inches 5'10" Weight 277.50 lb BMI (Body Mass Index) 39.8 kg/m2 12/04/2011 6:30pm BP Systolic 140 mmHg BP Diastolic 70 mmHg Heart Rate 78 /min Body Temperature 99.1 F Height 70 inches 5'10" Weight 262.00 lb BMI (Body Mass Index) 37.6 kg/m2 06/29/2004 3:34pm BP Systolic 132 mmHg BP Diastolic 80 mmHg Heart Rate 100 /min Body Temperature 99.1 F Height 70 inches 5'10" Weight 269.00 lb BMI (Body Mass Index) 38.6 kg/m2 05/21/2004 8:22am BP Systolic 110 mmHg BP Diastolic 75 mmHg Height 70 inches 5'10" 07/01/2003 9:12am BP Systolic 110 mmHg BP Diastolic 68 mmHg Heart Rate 64 /min Height 70 inches 5'10" Weight 250.00 lb BMI (Body Mass Index) 35.9 kg/m2 12/09/2002 2:45pm BP Systolic 148 mmHg BP Diastolic 60 mmHg Heart Rate 100 /min Height 70 inches 5'10" Weight 230.00 lb BMI (Body Mass Index) 33.0 kg/m2 11/02/2001 2:09pm Heart Rate 76 /min Body Temperature 97.4 F Height 70 inches 5'10" Weight 238.00 lb BMI (Body Mass Index) 34.1 kg/m2 04/14/2001 3:53pm BP Systolic 114 mmHg BP Diastolic 80 mmHg Body Temperature 97.3 F Height 70 inches 5'10" Weight 244.00 lb BMI (Body Mass Index) 35.0 kg/m2 03/28/2000 10:13am BP Systolic 108 mmHg BP Diastolic 60 mmHg Heart Rate 80 /min Body Temperature 97.5 F Height 70 inches 5'10" Weight 233.00 lb BMI (Body Mass Index) 33.4 kg/m2 01/10/2000 8:15am Body Temperature 97.3 F Height 70 inches 5'10" Weight 240.00 lb BMI (Body Mass Index) 34.4 kg/m2 01/02/2000 10:12am Body Temperature 97.6 F Height 70 inches 5'10" Weight 240.00 lb BMI (Body Mass Index) 34.4 kg/m2 09/18/1998 10:24am BP Systolic 114 mmHg LA LG Cuff BP Diastolic 64 mmHg LA LG Cuff Height 70 inches 5'10" Weight 248.00 lb 06/13/1998 10:59am BP Systolic 110 mmHg LG Cuff BP Diastolic 70 mmHg LG Cuff Height 70 inches 5'10" Weight 257.00 lb Results Test Date Facility Test Result H/L Range Note Comprehensive Metabolic 04/13/2018 [facility]) Sodium 139 mEq/L 134-149 Prof Potassium 4.4 mEq/L 3.6-5.5 Chloride 110 mEq/L 94-112 Carbon Dioxide 24 mEq/L 21-32 Glucose 110 mg/dL High 70-105 BUN 20 mg/dL 6-26 Creatinine 0.8 mg/dL 0.6-1.4 BUN/Creat Ratio 25.0 CALC 8.0-36.0 Calcium 9.5 mg/dL 8.6-10.2 Total Protein 7.6 g/dL 6.4-8.3 Albumin 4.6 g/dL 3.8-5.5 Globulin 3.0 g/dL 2.0-4.8 A/G Ratio 1.5 CALC 0.6-2.3 Alk. Phosphatase 74 U/L 22-95 Alt (SGPT) 24 U/L 7-35 Ast (Sgot) 19 U/L 5-34 Total Bilirubin 0.4 mg/dL 0.2-1.3 GFR Non- >60 ml/min/1.73m^ >=60 GFR >60 ml/min/1.73m^ >=60 Lipid Profile 04/13/2018 Zackary Maki([facility] [place]) Cholesterol 214 mg/dL High 120-200 Triglycerides 216 mg/dL High 30-200 HDL Cholesterol 70 mg/dL 30-70 LDL (Calculated) 101 CALC 0-129 VLDL Cholesterol 43 mg/dL 0-50 HDL Risk Factor 3.1 CALC 0.0-4.4 Laboratory test finding 04/13/2018 Zackary Shanthi([facility] [place]) PSA 0.4 ng/mL 0.0 -4.0 CBC Electronic Fma 04/13/2018 Zackary Shanthi([facility] [place]) WBC 7.6 x10^3/UL 4.0- 10.0 RBC 5.32 x10^6/UL 3.93-6.00 HGB 15.3 g/dL 12.0-17.0 HCT 46 % 35-50 MCV 86.3 fL 80.0-95.0 MCH 28.8 pg 25.6-32.2 MCHC 33.3 g/dL 32.2-36.0 RDW-CV 12.4 % 11.6-14.4 PLT 234 x10^3/UL 163-400 MPV 10.9 fL 9.4-12.4 Yeny# 4.80 x10^3/UL 1.56-6.13 Lymph# 1.56 x10^3/UL 1.18-3.74 Faulk# 0.71 x10^3/UL 0.24-0.82 Eos # 0.4 x10^3/UL 0.0-0.5 Baso # 0.08 x10^3/UL 0.01-0.08 Yeny% 63.3 % 34.0-70.0 Lymph % 20.6 % 20.0-52.0 Faulk% 9.4 % 5.0-12.0 Eos% 5.3 % 0.7-7.0 Baso% 1.1 % 0.1-1.2 Laboratory test 06/12/2017 [facility] Clotest SEE RESULT 1, 2 finding BELOW Laboratory test 06/12/2017 [facility] Surgical Interface SEE RESULT 3, 4 finding Order BELOW CBC Auto Diff 05/04/2017 [facility] White Blood Count 8.8 10^3/uL N 3.5-10.8 Red Blood Count 4.97 10^6/uL N 4.0-5.4 Hemoglobin 14.4 g/dL N 14.0-18.0 Hematocrit 43 % N 42-52 Mean Corpuscular Volume 85 fL N 80-94 Mean Corpuscular Hemoglobin 29 pg N 27-31 Mean Corpuscular HGB Conc 34 g/dL N 31-36 Red Cell Distribution Width 14 % N 10.5-15 Platelet Count 197 10^3/uL N 150-450 Mean Platelet Volume 9 um3 N 7.4-10.4 Abs Neutrophils 4.8 10^3/uL N 1.5-7.7 Abs Lymphocytes 2.7 10^3/uL N 1.0-4.8 Abs Monocytes 0.8 10^3/uL N 0-0.8 Abs Eosinophils 0.5 10^3/uL N 0-0.6 Abs Basophils 0.1 10^3/uL N 0-0.2 Abs Nucleated RBC 0 10^3/uL Granulocyte % 54.9 % N 38-83 Lymphocyte % 30.2 % N 25-47 Monocyte % 8.6 % N 1-9 Eosinophil % 5.3 % N 0-6 Basophil % 1.0 % N 0-2 Nucleated Red Blood Cells % 0.1 Laboratory test finding 05/04/2017 [facility] [place] Lactic Acid 1.0 mmol/L N 0.5-2.0 5 Comp Metabolic Panel 05/04/2017 [facility] [place] Sodium 137 mmol/L N 133-145 Potassium 3.7 mmol/L N 3.5-5.0 Chloride 102 mmol/L N 101-111 Co2 Carbon Dioxide 29 mmol/L N 22-32 Anion Gap 6 mmol/L N 2-11 Glucose 102 mg/dL High 70-100 Blood Urea Nitrogen 14 mg/dL N 6-24 Creatinine 0.87 mg/dL N 0.67-1.17 BUN/Creatinine Ratio 16.1 N 8-20 Calcium 9.0 mg/dL N 8.6-10.3 Total Protein 6.8 g/dL N 6.4-8.9 Albumin 4.0 g/dL N 3.2-5.2 Globulin 2.8 g/dL N 2-4 Albumin/Globulin Ratio 1.4 N 1-3 Total Bilirubin 0.40 mg/dL N 0.2-1.0 Alkaline Phosphatase 58 U/L N 34-104 Alt 16 U/L N 7-52 Ast 17 U/L N 13-39 Egfr Non- 90.4 >60 Egfr 116.3 >60 6 Laboratory test finding 05/04/2017 [facility] [place] Creatine Kinase(CK) 100 U/L N 10- 223 Troponin I 0.00 ng/mL <0.04 Inr/Protime 05/04/2017 [facility] Inr 0.98 N 0.77-1.02 Laboratory test finding 05/04/2017 [facility] Partial Thrombo Time 30.9 seconds N 26.0-36.3 PTT Laboratory test finding 03/23/2017 [facility] Troponin I 0.00 ng/mL <0.04 Laboratory test finding 03/22/2017 [facility] Lactic Acid 1.0 mmol/L N 0.5-2.0 7 B-Type Natriuretic Peptide BNP 19 pg/mL 8 Comp Metabolic Panel 03/22/2017 [facility] Sodium 136 mmol/L N 133-145 Potassium 4.0 mmol/L N 3.5-5.0 Chloride 103 mmol/L N 101-111 Co2 Carbon Dioxide 27 mmol/L N 22-32 Anion Gap 6 mmol/L N 2-11 Glucose 101 mg/dL High 70-100 Blood Urea Nitrogen 19 mg/dL N 6-24 Creatinine 0.95 mg/dL N 0.67-1.17 BUN/Creatinine Ratio 20.0 N 8-20 Calcium 9.6 mg/dL N 8.6-10.3 Total Protein 7.0 g/dL N 6.4-8.9 Albumin 4.1 g/dL N 3.2-5.2 Globulin 2.9 g/dL N 2-4 Albumin/Globulin Ratio 1.4 N 1-3 Total Bilirubin 0.30 mg/dL N 0.2-1.0 Alkaline Phosphatase 66 U/L N 34-104 Alt 21 U/L N 7-52 Ast 18 U/L N 13-39 Egfr Non- 81.7 >60 Egfr 105.1 >60 9 Laboratory test finding 03/22/2017 [facility] [place] Magnesium 1.9 mg/dL N 1.9-2.7 Lipase 31 U/L N 11.0-82.0 Troponin I 0.01 ng/mL <0.04 Inr/Protime 03/22/2017 [facility] Inr 0.90 N 0.77-1.02 10 Laboratory test finding 03/22/2017 [facility] [place] Partial Thrombo 30.5 seconds N 26.0-36.3 Time PTT CBC Auto Diff 03/22/2017 [facility] [place] White Blood Count 10.8 10^3/uL N 3.5-10.8 Red Blood Count 5.00 10^6/uL N 4.0-5.4 Hemoglobin 14.5 g/dL N 14.0-18.0 Hematocrit 43 % N 42-52 Mean Corpuscular Volume 85 fL N 80-94 Mean Corpuscular Hemoglobin 29 pg N 27-31 Mean Corpuscular HGB Conc 34 g/dL N 31-36 Red Cell Distribution Width 14 % N 10.5-15 Platelet Count 203 10^3/uL N 150-450 Mean Platelet Volume 8 um3 N 7.4-10.4 Abs Neutrophils 6.4 10^3/uL N 1.5-7.7 Abs Lymphocytes 2.9 10^3/uL N 1.0-4.8 Abs Monocytes 0.9 10^3/uL High 0-0.8 Abs Eosinophils 0.5 10^3/uL N 0-0.6 Abs Basophils 0.1 10^3/uL N 0-0.2 Abs Nucleated RBC 0.01 10^3/uL Granulocyte % 59.3 % N 38-83 Lymphocyte % 27.1 % N 25-47 Monocyte % 8.6 % N 1-9 Eosinophil % 4.2 % N 0-6 Basophil % 0.8 % N 0-2 Nucleated Red Blood Cells % 0.1 Laboratory test 05/29/2016 [facility] [place] Troponin I 0.01 ng/mL N <0.04 11 finding Laboratory test 05/16/2015 [facility] [place] Surgical SEE RESULT 12 finding Pathology BELOW Laboratory test 03/14/2015 [facility]) PSA 0.6 ng/mL 0.0-4.0 finding CBC Electronic 03/14/2015 [facility] WBC 9.0 3.6-9.6 (Fma) (607)- - RBC 4.93 3.90-5.70 Hemoglobin (Fma/CMC/CTX) 14.0 g/dL 12.1 - 17.2 Hematocrit (Fma/CMC/CTX) 43.0 % 36.1 - 50.3 Platelets 209 10^3/ul 150-400 Lymph% 28.7 % 17.0-48.0 Mixed% 5.1 Neutrophils % 66.2 Mean Corpuscular Vol 87 82.2-97.4 Mean Corpuscular Hemoglobin 28.4 27.6-33.3 Mean Corpuscular Hemo Concen 33.0 32.0-36.0 RDW 13.1 11.6-13.7 Mean Platelet Volume 7.3 5.5-11.0 Comprehensive Metabolic 03/14/2015 [facility] Shanthi([facility]) Sodium 138 mEq/L 134-149 Prof Potassium 3.9 mEq/L 3.6-5.5 Chloride 101 mEq/L 94-112 Carbon Dioxide 29 mEq/L 21-32 Glucose 85 mg/dL 70-105 BUN 18 mg/dL 6-26 Creatinine 0.7 mg/dL 0.6-1.4 BUN/Creat Ratio 25.7 CALC 8.0-36.0 Calcium 9.5 mg/dL 8.6-10.2 Total Protein 7.0 g/dL 6.4-8.3 Albumin 4.3 g/dL 3.8-5.5 Globulin 2.7 g/dL 2.0-4.8 A/G Ratio 1.6 CALC 0.6-2.3 Alk. Phosphatase 56 U/L 22-95 Alt (SGPT) 27 U/L 7-35 Ast (Sgot) 21 U/L 5-34 Total Bilirubin 0.3 mg/dL 0.2-1.3 GFR Non- >60 ml/min/1.73m^ >=60 GFR >60 ml/min/1.73m^ >=60 Lipid Profile 03/14/2015 [facility] Shanthi([facility]) Cholesterol 219 mg/dL High 120-200 Triglycerides 145 mg/dL 30-200 HDL Cholesterol 65 mg/dL 30-70 LDL (Calculated) 125 CALC 0-129 VLDL Cholesterol 29 mg/dL 0-50 HDL Risk Factor 3.4 CALC 0.0-4.4 Comp Metabolic Panel 09/14/2014 [facility] [place] Sodium 137 mmol/L N 133-145 Chloride 103 mmol/L N 101-111 Co2 Carbon Dioxide 28 mmol/L N 22-32 Glucose 99 mg/dL N 70-100 Blood Urea Nitrogen 17 mg/dL N 6-24 Creatinine 0.83 mg/dL N 0.67-1.17 BUN/Creatinine Ratio 20.5 High 8-20 Calcium 9.1 mg/dL N 8.6-10.3 Total Protein 6.5 g/dL N 6.4-8.9 Albumin 3.9 g/dL N 3.2-5.2 Globulin 2.6 g/dL N 2-4 Albumin/Globulin Ratio 1.5 N 1-3 Total Bilirubin 0.30 mg/dL N 0.2-1.0 Alkaline Phosphatase 58 U/L N 34-104 Alt 23 U/L N 7-52 Egfr Non- 96.5 N >60 Egfr 124.2 N >60 13 Potassium 3.9 mmol/L N 3.5-5.0 Anion Gap 6 mmol/L N 2-11 Ast 22 U/L N 13-39 Laboratory test finding 09/14/2014 [facility] [place] Magnesium 1.9 mg/dL N 1.9-2.7 Lipase 24 U/L N 11.0-82.0 Creatine Kinase 128 U/L N 10-223 C Reactive Protein 1.11 mg/L N < 5.00 14 Troponin I 0.00 ng/mL N <0.03 15 CKMB 09/14/2014 [facility] [place] CKMB ng/mL 5.4 ng/mL N 0.6-6.3 Laboratory test 09/14/2014 [facility] [place] TSH (Thyroid Stim 1.43 ?IU/mL N 0.34-5.60 finding Horm) Laboratory test 09/14/2014 [facility] [place] Activated Partial 30.1 seconds N 26.0- 36.3 finding Thrombo Time D Dimer Quantitative < 200 ng/mL N Less Than 230 16 B Type Natriuretic Peptide 11 pg/mL N 17 Inr/Protime 09/14/2014 [facility] [place] Inr 0.94 N 0.78-1.07 CBC Auto Diff 09/14/2014 [facility] [place] White Blood Count 9.0 10^3/uL N 4.8-10.8 Red Blood Count 5.09 10^6/uL N 4.0-5.4 Hemoglobin 14.5 g/dL N 14.0-18.0 Hematocrit 44 % N 42-52 Mean Corpuscular Volume 87 fL N 80-94 Mean Corpuscular Hemoglobin 29 pg N 27-31 Mean Corpuscular HGB Conc 33 g/dL N 31-36 Red Cell Distribution Width 13 % N 10.5-15 Platelet Count 199 10^3/uL N 150-450 Mean Platelet Volume 9 um3 N 7.4-10.4 Abs Neutrophils 5.3 10^3/uL N 1.5-7.7 Abs Lymphocytes 2.0 10^3/uL N 1.0-4.8 Abs Monocytes 1.0 10^3/uL High 0-0.8 Abs Eosinophils 0.5 10^3/uL N 0-0.6 Abs Basophils 0.1 10^3/uL N 0-0.2 Abs Nucleated RBC 0 10^3/uL N Granulocyte % 59.4 % N 38-83 Lymphocyte % 22.6 % Low 25-47 Monocyte % 11.1 % High 1-9 Eosinophil % 5.9 % N 0-6 Basophil % 1.0 % N 0-2 Nucleated Red Blood Cells % 0 N Laboratory test finding 09/14/2014 [facility] [place] Troponin I 0.00 ng/mL N <0.03 18 CBC Auto Diff 04/11/2014 [facility] [place] White Blood Count 8.3 10^3/uL N 4.8-10.8 Red Blood Count 5.19 10^6/uL N 4.0-5.4 Hemoglobin 14.9 g/dL N 14.0-18.0 Hematocrit 45 % N 42-52 Mean Corpuscular Volume 87 fL N 80-94 Mean Corpuscular Hemoglobin 29 pg N 27-31 Mean Corpuscular HGB Conc 33 g/dL N 31-36 Red Cell Distribution Width 13 % N 10.5-15 Platelet Count 194 10^3/uL N 150-450 Mean Platelet Volume 9 um3 N 7.4-10.4 Abs Neutrophils 4.9 10^3/uL N 1.5-7.7 Abs Lymphocytes 2.0 10^3/uL N 1.0-4.8 Abs Monocytes 0.7 10^3/uL N 0-0.8 Abs Eosinophils 0.5 10^3/uL N 0-0.6 Abs Basophils 0.1 10^3/uL N 0-0.2 Abs Nucleated RBC 0.01 10^3/uL N Granulocyte % 59.5 % N 38-83 Lymphocyte % 24.5 % Low 25-47 Monocyte % 9.0 % N 1-9 Eosinophil % 5.7 % N 0-6 Basophil % 1.3 % N 0-2 Nucleated Red Blood Cells % 0.1 N Comp Metabolic Panel 04/11/2014 [facility] Sodium 136 mmol/L N 133-145 Potassium 4.0 mmol/L N 3.5-5.0 Chloride 103 mmol/L N 101-111 Co2 Carbon Dioxide 28 mmol/L N 22-32 Anion Gap 5 mmol/L N 2-11 Glucose 109 mg/dL High 70-100 Blood Urea Nitrogen 16 mg/dL N 6-24 Creatinine 0.82 mg/dL N 0.67-1.17 BUN/Creatinine Ratio 19.5 N 8-20 Calcium 8.8 mg/dL N 8.6-10.3 Total Protein 6.7 g/dL N 6.4-8.9 Albumin 4.0 g/dL N 3.2-5.2 Globulin 2.7 g/dL N 2-4 Albumin/Globulin Ratio 1.5 N 1-3 Total Bilirubin 0.30 mg/dL N 0.2-1.0 Alkaline Phosphatase 53 U/L N 34-104 Alt 25 U/L N 7-52 Ast 20 U/L N 13-39 Egfr Non- 97.9 N >60 Egfr 125.9 N >60 19 Laboratory test finding 04/11/2014 [facility] Troponin I 0.01 ng/mL N <0.03 20 D Dimer Quantitative < 200 ng/mL N Less Than 230 21 Lipase 23 U/L N 11.0-82.0 Comp Metabolic ([facility]) 04/15/2001 [facility] Albumin 4.6 3.8-5.5 (607)- - Alkaline Phosphatase 65 U/L 22-95 Bilirubin, Total 0.6 mg/dL 0.2-1.3 BUN 14 7-26 Calcium 9.3 mg/dL 8.6-10.0 Creatinine 0.8 mg/dL 0.6-1.4 Glucose 96 mg/dL 70 - 118 Ast Sgot 24 U/L 5-40 Alt (SGPT) 30 10-40 Total Protein 7.7 g/dL 6.4-8.3 Sodium 141 134-149 Potassium 4.3 3.6-5.5 Chloride 103 mEq/L 94-112 Co2 29 21-32 Globulin 3.1 2.0-4.8 Albumin / Globulin Ratio 1.5 0.6-2.2 BUN/Creatinin Ratio 17.5 8.0-36 Lipid Profile (a) 04/15/2001 [facility] Cholesterol 210 mg/dL High 140-200 (607)- - Triglyceride 138 mg/dL 30-150 VLDL 28 0-50 LDL-Calculated 123 0-160 HDL-Chol 59 30-70 CBC With Diff ([facility]) 04/15/2001 [facility] WBC 7.3 3.6-9.6 (607)- - Lymphocytes 22.4 % 20.5 - 51.1 Monocytes 4.8 % 1.7-9.3 Granulocytes 72.8 % 42.2 - 75.2 Lymphocytes 1.6 10^3/uL 0.7 - 4.9 Monocytes 0.4 10^3/uL 0.1 - 0.9 Granulocytes 5.3 10^3/uL 1.5 - 7.2 RBC 5.23 3.90-5.70 Hemoglobin 15.6 g/dL 12.1 - 17.2 Hematocrit 45.0 % 36.1 - 50.3 Mean Corpuscular Vol 86.1 82.2-97.4 Mean Corpuscular Hemaglobin 29.8 27.6-33.3 Mean Corpuscular Hemo Concen 34.6 33.0-34.8 RDW 12.7 11.6-13.7 Platelets 203 10^3/ul 150-400 Mean Platelet Volume 8.9 7.4-10.4 1 [id number] 2 SEE RESULT BELOW Name: IHSAN ALEXANDER : [address]: Fermín Kamara MD Acct: [id number] Unit: [id number] AGE: 56 Location: [facility] Re06/12/17 SEX: M Status: DEP REF SPEC: [id number] YAN: 06/12/17-[address]: Fermín Kamara MD REQ: [id number] RECD: 06/12/17-1154 STATUS: COMP OTHR DR: Jonah Hanna MD _ SOURCE: GAS ANTRUM SPDESC: ORDERED: Clotest COMMENTS: [id number] Procedure Result Reported Site Clotest Final 06/13/17- 732 ML Clotest Negative * - Main Lab . END OF REPORT DEPARTMENT OF PATHOLOGY, [address] [place] [address] Elliot Sandy M.D. Director [facility] # [id number] 3 [id number] 4 SEE RESULT BELOW Name: IHSAN ALEXANDER A : [address]: Fermín Kamara MD Acct: [id number] Unit: [id number] AGE: 56 Location: [facility] Re06/12/17 SEX: M Status: DEP REF SPEC: [id number] YAN: 06/12/17-[address] [facility] [address]: Fermín Kamara MD REQ: [id number] RECD: 06/12/17-1152 STATUS: KRISTEN PUENTES DR: Jonah Hanna MD _ ORDERED: LEVEL 4 COMMENTS: [id number] FINAL DIAGNOSIS Gastroesophageal junction, biopsy: -- Squamous and columnar mucosa with chronic inflammation. -- Intestinal metaplasia is absent. -- Dysplasia is absent. CLINICAL HISTORY Gastroesophageal reflux disease POST-OPERATIVE DIAGNOSIS Esophagus ? single tongue Laird?s esophagus biopsy; stomach ? gastritis biopsied; duodenum ? normal. Conclusions/Plan: Stop NSAIDs; follow-up biopsy GROSS DESCRIPTION The specimen is received in formalin labeled, [place] Biopsies, and consists of a 0.5 x 0.3 by up to 0.2 cm pagan-white irregular soft tissue fragment which is submitted entirely in one cassette. Signed (signature on file) Deysi Webb MD 1034 END OF REPORT DEPARTMENT OF PATHOLOGY, [address] [place] [address] Elliot Sandy M.D. Director [facility] # [id number] 5 [facility] Severe Sepsis and Septic Shock Management Bundle Measure requires all lactic acids initially measuring >2.0 mmol/L be repeated. 6 Because ethnic data is not always readily available, this report includes an eGFR for both -Americans and non- Americans. The National Kidney Disease Education Program (NKDEP) does not endorse the use of the MDRD equation for patients that are not between the ages of 18 and 70, are , have extremes of body size, muscle mass, or nutritional status, or are non- or non-. According to the National Kidney Foundation, irrespective of diagnosis, the stage of the disease is based on the level of kidney function: Stage Description GFR(mL/min/1.73 m(2)) 1 Kidney damage with normal or decreased GFR 90 2 Kidney damage with mild decrease in GFR 60-89 3 Moderate decrease in GFR 30-59 4 Severe decrease in GFR 15-29 5 Kidney failure <15 (or dialysis) 7 [facility] Severe Sepsis and Septic Shock Management Bundle Measure requires all lactic acids initially measuring >2.0 mmol/L be repeated. 8 >100 to <200 pg/mL: likely compensated congestive heart failure (CHF) 200 to 400 pg/mL: likely moderate CHF >400 pg/mL: likely moderate to severe CHF 9 Because ethnic data is not always readily available, this report includes an eGFR for both -Americans and non- Americans. The National Kidney Disease Education Program (NKDEP) does not endorse the use of the MDRD equation for patients that are not between the ages of 18 and 70, are , have extremes of body size, muscle mass, or nutritional status, or are non- or non-. According to the National Kidney Foundation, irrespective of diagnosis, the stage of the disease is based on the level of kidney function: Stage Description GFR(mL/min/1.73 m(2)) 1 Kidney damage with normal or decreased GFR 90 2 Kidney damage with mild decrease in GFR 60-89 3 Moderate decrease in GFR 30-59 4 Severe decrease in GFR 15-29 5 Kidney failure <15 (or dialysis) 10 Please note the change in INR reference range effective 17. 11 99th percentile=0.04 ng/mL Troponin results at [facility] and [facility] are not interchangeable. 12 SEE RESULT BELOW Name: IHSAN ALEXANDER A : [address]: Fermín Kamara MD Acct: [id number] Unit: [id number] AGE: 54 Location: [facility] Re05/16/15 SEX: M Status: REG REF SPEC: [id number] YAN: 05/16/15-[address] [facility] [address]: Fermín Kamara MD REQ: [id number] RECD: 05/16/15-1204 STATUS: KRISTEN PUENTES DR: Jonah Hanna MD _ ORDERED: LEVEL IV FINAL DIAGNOSIS Colon, at 20 cm, biopsy: -- Tubular adenoma. -- No high grade dysplasia or malignancy. CLINICAL HISTORY No history given POST-OPERATIVE DIAGNOSIS Colonoscopy to cecum: polyp at 25 cm - biopsied. GROSS DESCRIPTION The specimen is received in formalin labeled, Biopsy Colon Polyp at 20 cm, and consists of a 0.2 x 0.2 x 0.1 cm pagan-pink polypoid soft tissue fragment, which is inked and submitted entirely in one cassette. Signed (signature on file) Deysi Webb MD 1539 END OF REPORT * ML=Testing performed at Main Lab DEPARTMENT OF PATHOLOGY, [address] [place] [address] Elliot Sandy M.D. Director [facility] # [id number] 13 Because ethnic data is not always readily available, this report includes an eGFR for both -Americans and non- Americans. The National Kidney Disease Education Program (NKDEP) does not endorse the use of the MDRD equation for patients that are not between the ages of 18 and 70, are , have extremes of body size, muscle mass, or nutritional status, or are non- or non-. According to the National Kidney Foundation, irrespective of diagnosis, the stage of the disease is based on the level of kidney function: Stage Description GFR(mL/min/1.73 m(2)) 1 Kidney damage with normal or decreased GFR 90 2 Kidney damage with mild decrease in GFR 60-89 3 Moderate decrease in GFR 30-59 4 Severe decrease in GFR 15-29 5 Kidney failure <15 (or dialysis) 14 Acute inflammation: >10.00 15 Reference Range and Interpretation: TnI (ng/mL) Interpretation Less Than 0.03 ng/mL Not supportive of diagnosis of IA 0.03 - 0.50 ng/mL Indeterminate: suggest serial studies if clinically indicated. Greater than 0.5 ng/mL Consistent with diagnosis of IA 16 Please note: The following may produce a false positive D Dimer test: - Rheumatoid factor greater than 60 IU/ml - Plasma hemoglobin greater than 0.05 gm/dl - Bilirubin greater than 50 mg/dl - Lipids greater than 1000 mg/dl - FDP greater than 20 ug/ml 17 >100 to <200 pg/mL: likely compensated congestive heart failure (CHF) 200 to 400 pg/mL: likely moderate CHF >400 pg/mL: likely moderate to severe CHF 18 Reference Range and Interpretation: TnI (ng/mL) Interpretation Less Than 0.03 ng/mL Not supportive of diagnosis of IA 0.03 - 0.50 ng/mL Indeterminate: suggest serial studies if clinically indicated. Greater than 0.5 ng/mL Consistent with diagnosis of IA 19 Because ethnic data is not always readily available, this report includes an eGFR for both -Americans and non- Americans. The National Kidney Disease Education Program (NKDEP) does not endorse the use of the MDRD equation for patients that are not between the ages of 18 and 70, are , have extremes of body size, muscle mass, or nutritional status, or are non- or non-. According to the National Kidney Foundation, irrespective of diagnosis, the stage of the disease is based on the level of kidney function: Stage Description GFR(mL/min/1.73 m(2)) 1 Kidney damage with normal or decreased GFR 90 2 Kidney damage with mild decrease in GFR 60-89 3 Moderate decrease in GFR 30-59 4 Severe decrease in GFR 15-29 5 Kidney failure <15 (or dialysis) 20 Reference Range and Interpretation: TnI (ng/mL) Interpretation Less Than 0.03 ng/mL Not supportive of diagnosis of IA 0.03 - 0.50 ng/mL Indeterminate: suggest serial studies if clinically indicated. Greater than 0.5 ng/mL Consistent with diagnosis of IA 21 Please note: The following may produce a false positive D Dimer test: - Rheumatoid factor greater than 60 IU/ml - Plasma hemoglobin greater than 0.05 gm/dl - Bilirubin greater than 50 mg/dl - Lipids greater than 1000 mg/dl - FDP greater than 20 ug/ml Procedures Date Code Description Status 06/11/2018 80371 Electrocardiogram Complete Completed 04/13/2018 78508 Vision Test- screening test of visual acuity, Completed quantitative, bila 10/06/2017 86878 Electrocardiogram Complete Completed 05/16/2015 61249241 Colonoscopy Completed 03/14/2015 52903 Vision Test- screening test of visual acuity, Completed quantitative, bila Encounters Type Date Location Provider Dx Diagnosis Office Visit 06/12/2018 Main Office Jonah Hanna, R07.9 Chest pain, 8:00a M.D. unspecified M54.2 Cervicalgia M54.12 Radiculopathy, cervical region F41.1 Generalized anxiety disorder Office Visit 04/13/2018 10:20a Main Office Jonah Hanna, Z00.00 Encntr for general M.D. adult medical exam w/o abnormal findings K21.9 Gastro-esophageal reflux disease without esophagitis F41.1 Generalized anxiety disorder N40.0 Benign prostatic hyperplasia without lower urinry tract symp Office Visit 03/31/2018 10:30a Main Office Kriss Huerta J06.9 Acute upper Afnp-C respiratory infection, unspecified F41.1 Generalized anxiety disorder Office Visit 10/06/2017 9:40a [facility] Jaylan Aviles R07.9 Chest pain, Office MD Saniya unspecified Z01.818 Encounter for other preprocedural examination M17.12 Unilateral primary osteoarthritis, left knee Office Visit 05/09/2017 9:45a Main Office Ingris Mao K21.9 Gastro- esophageal Nicholas, [employer] reflux disease without esophagitis R07.9 Chest pain, unspecified Office Visit 03/27/2017 11:40a [facility] Jonah Hanna M54.2 Cervicalgia M.D. M54.12 Radiculopathy, cervical region K21.9 Gastro-esophageal reflux disease without esophagitis F41.1 Generalized anxiety disorder Office Visit 06/21/2016 4:40p Main Office Jonah Hanna, Z00.01 Encounter for M.D. general adult medical exam w abnormal findings M25.511 Pain in right shoulder K21.9 Gastro-esophageal reflux disease without esophagitis F41.1 Generalized anxiety disorder Office Visit 02/06/2016 [facility] Kriss M19.011 Primary 1:30p Office [place], osteoarthritis, Afnp-C right shoulder M25.511 Pain in right shoulder M25.512 Pain in left shoulder R21 Rash and other nonspecific skin eruption Office Visit 01/15/2016 1:00p [facility] Kriss M25.511 Pain in right [place], Afnp-C shoulder M25.512 Pain in left shoulder Office Visit 03/14/2015 3:20p Main Office Jonah Hanna, Z00.00 Encntr for general M.D. adult medical exam w/o abnormal findings K21.9 Gastro-esophageal reflux disease without esophagitis N40.0 Enlarged prostate without lower urinary tract symptoms F41.1 Generalized anxiety disorder Z23 Encounter for immunization Office Visit 09/20/2014 2:40p Main Office Jonah aHnna, 786.59 Pain Chest Other M.D. 530.81 Esophageal Reflux Office Visit 09/02/2014 10:30a [facility] Office Ashley Santamaria, 782.9 Skin & [employer] Integumentary Tissue Other Symptoms Office Visit 12/21/2013 4:15p [facility] Office Kriss 782.1 Rash & Other [place], Nonspec Skin Afnp-C Eruption 300.09 Anxiety States Other 724.2 Lumbago Office Visit 10/19/2012 [facility] Deysi 372.00 Conjunctivitis Acute 3:30p Office ONEIL Arroyo Unspec 785.6 Lymph Nodes Enlargement 782.1 Rash & Other Nonspec Skin Eruption 724.2 Lumbago Office Visit 12/04/2011 6:30p Main Office Kriss Huerta, 847.2 Sprains & Strains Afnp-C Lumbar Office Visit 05/21/2004 8:40a Main Office Rafael Tamayo, 784.0 Headache M.D. 368.8 Visual Disturbances Other Spec Office Visit 07/01/2003 9:00a Main Office Jonah Hanna, 724.2 Lumbago M.D. Office Visit 12/09/2002 2:00p [facility] Zach Arreola, 959.3 Injury Elbow M.D. Forearm & Wrist Other & Unspec Office Visit 11/02/2001 2:00p Main Office Jonah Hanna M.D. Office Visit 04/14/2001 3:40p Main Office Elliot Reynolds M.D. Office Visit 03/28/2000 10:00a [facility] Office Elliot Reynolds M.D. Office Visit 01/10/2000 8:10a Main Office Elliot Reynolds M.D. Office Visit 01/02/2000 10:00a Main Office Elliot Reynolds M.D. Plan of Treatment 10/06/2018 - Lottie Barr, NPM72.2 Plantar fascial fibromatosisComments: Use gel heel inserts, roll your foot and ankle with a tennis ball, and stretch your calves several times per day. If that doesn't help, please see Dr. Rock for follow-up.AllComments:1. Patient has been queried about patient's goals/ preferences and functional/lifestyle goals at relevant visits. If relevant, describe: Has been discussed, noted above2. Treatment goals as explainedto the patient: see above3. Are there barriers to meeting treatment goals? Yes If Yes, please describe: Barriers include possible insurance limits, disease process, and difficulty with lifestyle changes4. Self-Management goals as described to the patient: Yes, see above As always, we strongly encourage a healthy diet and making physical activity a part of your every day life. If you have questions about how or where to start, please contact the office.
[2018-10-11 10:46] VITALS: BP 103/68
--- NOTE | 2018-10-11 11:02 | UC ---
General HPI - HPI Summary HPI Summary: yesterday am he was standing on closed ladder leaning against counter working overhead when the ladder slipped and he struck L ribs/chest on counter and fell to floor no LOC, no SOB, no pain other than L anterior ribs/chest , worse with deep breath or movement. pt was able to mow lawn today - History of Current Complaint Chief Complaint: UCTrauma Stated Complaint: RIB INJURY Time Seen by Provider: 10/11/18 10:49 Hx Obtained From: Patient Onset/Duration: Sudden Onset Onset Severity: Moderate Current Severity: Mild Pain Intensity: 3 Associated Signs & Symptoms: Negative: Abdominal Pain, Cough, Dizziness, Hemoptysis - Allergy/Home Medications Allergies/Adverse Reactions: Allergies Allergy/AdvReac Type Severity Reaction Status Date / Time No Known Allergies Allergy Verified 10/11/18 10:47 PMH/Surg Hx/FS Hx/Imm Hx Previously Healthy: Yes GI/ History: Gastroesophageal Reflux Psychological History: Anxiety - Surgical History Surgical History: Yes Surgery Procedure, Year, and Place: R side hernia repair 1976. ARTERY CAUTERIZED IN SINUS ABOUT 8 INCHES BACK INTO HEAD 05/2016. broken jaw repair. ROTATOR CUFF SURGERY RIGHT 06/26/16. wisdom teeth - Family History Known Family History: Positive: Cardiac Disease Negative: Blood Disorder - Social History Occupation: Employed Full-time Lives: With Family Alcohol Use: Rare Alcohol Amount: social Substance Use Type: None Substance Use Comment - Amount & Last Used: drinks a lot of diet sodas with caffiene Smoking Status (MU): Never Smoked Tobacco Have You Smoked in the Last Year: No - Immunization History Most Recent Influenza Vaccination: never Most Recent Tetanus Shot: last couple years Most Recent Pneumonia Vaccination: never Review of Systems All Other Systems Reviewed And Are Negative: Yes Constitutional: Positive: Negative Skin: Positive: Negative, Rash. Negative: Bruising Respiratory: Positive: Negative. Negative: Shortness Of Breath, Cough Cardiovascular: Positive: Negative. Negative: Chest Pain Gastrointestinal: Positive: Negative. Negative: Abdominal Pain Musculoskeletal: Positive: Other: - L anterior rib pain, denies back pain Neurological: Positive: Negative Psychological: Positive: Negative Is Patient Immunocompromised?: No Physical Exam Triage Information Reviewed: Yes Appearance: Well-Appearing, No Pain Distress, Obese Vital Signs: Initial Vital Signs Temp 97.7 F 10/11/18 10:41 Pulse 94 10/11/18 10:41 Resp 17 10/11/18 10:41 BP 103/68 10/11/18 10:41 Pulse Ox 100 10/11/18 10:41 Vital Signs Reviewed: Yes Neck exam: Normal Neck: Positive: Supple, Nontender Respiratory Exam: Normal Respiratory: Positive: Lungs clear, Other: - L anterior lower rib pain, no swelling or bruising detected, pain with light palpation Cardiovascular Exam: Normal Cardiovascular: Positive: RRR Abdominal Exam: Normal Abdomen Description: Positive: No Organomegaly, Soft. Negative: CVA Tenderness (L), Distended, Guarding, Splenomegaly Musculoskeletal Exam: Normal Neurological Exam: Normal Psychological Exam: Normal Skin Exam: Normal Course/Dx - Differential Dx - Multi-Symptom Differential Diagnoses: Other - fractured ribs, contusion, pneumothorax, splenic injury - Diagnoses Provider Diagnosis: Contusion of rib on left side Discharge - Sign-Out/Discharge Documenting (check all that apply): Patient Departure - no Left rib fractures, no pneumothorax All imaging exams completed and their final reports reviewed: Yes - Discharge Plan Condition: Good Disposition: HOME Patient Education Materials: Rib Contusion (ED) Referrals: Jonah Hanna MD [Primary Care Provider] - 1 Week (if no improvement) Additional Instructions: use ibuprofen 600mg every 6 hours as needed for pain apply ice to area of pain report to ER if you experience shortness of breath or increasing pain - Billing Disposition and Condition Condition: GOOD Disposition: Home
== END 2018-10-11 12:07 | disposition home or self-care (01) ==
LOC: UCEAST 10:25
DX: S20.212A Contusion of left front wall of thorax, initial encounter (principal); W11.XXXA Fall on and from ladder, initial encounter; Y92.9 Unspecified place or not applicable; F41.9 Anxiety disorder, unspecified; K21.9 Gastro-esophageal reflux disease without esophagitis
CPT/HCPCS: 99211; G0463

== ENCOUNTER 2018-12-07 07:04 | Emergency (ER) | payer BC ==
[2018-12-07] MEDS ORDERED: Tetracaine 0.5% OPTH.SOL 4 ML* 1 DROP BTL LEFT EYE ONE (07:10)
[2018-12-07] MEDS ORDERED: Fluorescein Sodium TOPICAL* 1 MG TEST STRIP OPHTHALMIC ONE (07:10)
[2018-12-07 07:13] VITALS: BP 139/72
--- NOTE | 2018-12-07 07:26 | UC ---
Eye Complaint HPI - HPI Summary HPI Summary: 58 yo arrives with acute eye pain, suspecting a piece of rust in his eye which came off his muffler as he was checking it this morning. - History of Current Complaint Chief Complaint: UCEye Stated Complaint: FB IN EYE Time Seen by Provider: 12/07/18 07:09 Hx Obtained From: Patient Onset/Duration: Sudden Onset, Lasting Minutes Timing: Constant Pain Intensity: 6 Location of Injury: Conjunctiva, Eye Lid (upper) Character: Sharp Aggravating Factor(s): Blinking Alleviating Factor(s): Nothing Associated Signs And Symptoms: Positive: Photophobia, Drainage (Clear) - Risk Factors Penetrating Injury Risk Factor: Negative Globe Rupture Risk Factors: Negative Acute Glaucoma Risk Factors: Negative Optic Artery Occlusion Risk Factors: Negative - Allergies/Home Medications Allergies/Adverse Reactions: Allergies Allergy/AdvReac Type Severity Reaction Status Date / Time No Known Allergies Allergy Verified 12/07/18 07:13 PMH/Surg Hx/FS Hx/Imm Hx - Additional Past Medical History Additional PMH: Obese GI/ History: Gastroesophageal Reflux Psychological History: Anxiety - Surgical History Surgical History: Yes Surgery Procedure, Year, and Place: R side hernia repair 1976. ARTERY CAUTERIZED IN SINUS ABOUT 8 INCHES BACK INTO HEAD 05/2016. broken jaw repair. ROTATOR CUFF SURGERY RIGHT 06/26/16. wisdom teeth - Family History Known Family History: Positive: Cardiac Disease Negative: Blood Disorder - Social History Occupation: Employed Full-time Lives: With Family Alcohol Use: Rare Alcohol Amount: social Substance Use Type: None Substance Use Comment - Amount & Last Used: drinks a lot of diet sodas with caffiene Smoking Status (MU): Never Smoked Tobacco Have You Smoked in the Last Year: No - Immunization History Most Recent Influenza Vaccination: never Most Recent Tetanus Shot: last couple years Most Recent Pneumonia Vaccination: never Review of Systems All Other Systems Reviewed And Are Negative: Yes Constitutional: Positive: Negative Eyes: Positive: Blurred Vision, Eye Redness Is Patient Immunocompromised?: No Physical Exam Triage Information Reviewed: Yes Appearance: Pain Distress - moderate to severe on arrival, Obese Vital Signs: Initial Vital Signs Temp 98.5 F 12/07/18 07:11 Pulse 66 12/07/18 07:11 Resp 18 12/07/18 07:11 BP 139/72 12/07/18 07:11 Pulse Ox 96 12/07/18 07:11 Vital Signs Reviewed: Yes Eye Exam: Other - Applied tetracaine drops 2 gtte to the left eye with relief of pain. Fluorscein uptake abraded area of the left lower lid. Upper lid flipped with small metallic foreign body removed with sterile Qtip. Cornea intact. Eyes: Positive: Conjunctiva Inflamed ENT: Positive: Normal ENT inspection Respiratory: Positive: Lungs clear, Normal breath sounds Cardiovascular: Positive: RRR, No Murmur Psychological Exam: Normal Skin Exam: Normal Procedures - Eye Procedure Left Alcaine Drops Administered: Yes Eye FB Removal: removal w/ cotton swab Re-Evaluation - Re-Evaluation First Eval Re-Evaluation Time: 08:40 - FB sensation fully resolved Change: Improved Eye Complaint Course/Dx - Course Course Of Treatment: Removal of foreign body left eye; antibiotic drops to be used preventatively. - Differential Dx/Diagnosis Differential Diagnosis/HQI/PQRI: Corneal Abrasion, Foreign Body Provider Diagnosis: Foreign body of left eye Discharge ED - Sign-Out/Discharge Documenting (check all that apply): Patient Departure All imaging exams completed and their final reports reviewed: No Studies - Discharge Plan Condition: Stable Disposition: HOME Prescriptions: Polymyx/Trimethoprim OPTH* [Polytrim OPHTH*] 2 drop LEFT EYE Q3H #1 btl Patient Education Materials: Eye Foreign Body (ED) Referrals: Jonah Hanna MD [Primary Care Provider] - Jaylan Juárez MD [Medical Doctor] - Additional Instructions: Use drops to the left eye every 3 hours for 2 to 3 days, with follow up if you have any continuing eye pain after 2 days[address] Follow up with Dr. Juárez if you have any residual pain or vision compromise. - Billing Disposition and Condition Condition: STABLE Disposition: Home
== END 2018-12-07 07:59 | disposition home or self-care (01) ==
LOC: UCEAST 07:04
DX: T15.92XA Foreign body on external eye, part unspecified, left eye, initial encounter (principal); W22.8XXA Striking against or struck by other objects, initial encounter; Y92.9 Unspecified place or not applicable; K21.9 Gastro-esophageal reflux disease without esophagitis; F41.9 Anxiety disorder, unspecified
CPT/HCPCS: 99213; A9270-GY; G0463

== ENCOUNTER 2019-05-17 12:32 | Emergency (ER) | payer BC ==
[2019-05-17 13:15] LABS: ABS Basophils 0.1 10^3/ul (0-0.2); ABS Eosinophils 0.4 10^3/ul (0-0.6); ABS Lymphocytes 1.6 10^3/ul (1.0-4.8); ABS Monocytes 0.8 10^3/ul (0-0.8); ABS Neutrophils 5.5 10^3/ul (1.5-7.7); Eosinophil % 4.9 %; Hematocrit 45 % (42-52); Hemoglobin 15.5 g/dL (14.0-18.0); Lymphocyte % 19.4 %; Mean Corpuscular HGB Conc 34 g/dL (31-36); Mean Corpuscular Hemoglobin 29 pg (27-31); Mean Corpuscular Volume 86 fL (80-94); Mean Platelet Volume 8.7 fL (7.4-10.4); Platelet Count 240 10^3/uL (150-450); Red Blood Count 5.28 10^6 /uL (4.18-5.48); Red Cell Distribution Width 13 % (10-15); White Blood Count 8.5 10^3/uL (3.5-10.8)
[2019-05-17 13:20] LABS: INR 1.03 (0.82-1.09)
[2019-05-17 13:26] LABS: Albumin 4.4 g/dL (3.2-5.2); Calcium 9.1 mg/dL (8.6-10.3); Total Bilirubin 0.4 mg/dL (0.2-1.0)
[2019-05-17 13:31] LABS: Albumin/Globulin Ratio 1.5 (1-3); BUN/Creatinine Ratio 23.2 (8-20); EGFR African American 116.4 (>60); EGFR Non-African American 96.2 (>60); Total Protein 7.4 g/dL (6.4-8.9)
--- NOTE | 2019-05-17 13:36 | ED ---
HPI Chest Pain - HPI Summary HPI Summary: The patient is a 58-year-old male presenting to [facility] [place] with a chief complaint of chest discomfort onset yesterday. He reports that he had been moving a lot of things around yesterday and had felt upper left chest pain throughout the day and is still present. Then last night while lying in bed, he was moving around and felt a severe neck cracking pain which caused his jaw to lock an hour later. This morning, he felt a sharp pain behind the left ear and left mandible pain radiating into the neck. Symptoms rated 3/10 in severity as the ear and chest pains are still present although improved. Palpation alleviates the pain, and nothing aggravates it. He denies any nausea, vomiting, or diaphoresis. He states that he has experienced similar symptoms in the past occurring usually about once a month and has seen his primary care provider, who recommended he come here for sharp pain. He notes concern for either indigestion or dehydration. Past medical history is significant for anxiety, chronic back pain, vasovagal episodes, GERD. Family history of CHF fatal in father age 62, lung disease in half-sister. Nonsmoker, rare alcohol use, no substance use. Medications reviewed. Allergies noted. Home Medications Medication Instructions Recorded Confirmed Type clonazePAM TAB(*) [Klonopin TAB(*)] 0.5 - 1 mg PO Q8HR PRN 05/12/15 05/17/19 History Pantoprazole TAB * [Protonix TAB 40 mg PO DAILY #30 tab 05/04/17 05/17/19 Rx (NF)] Naproxen TAB* [Naprosyn 250 mg 500 mg PO BID PRN 05/17/19 05/17/19 History TAB*] - History of Current Complaint Chief Complaint: EDChestPainROMI Time Seen by Provider: 05/17/19 13:17 Hx Obtained From: Patient Onset/Duration: Started Hours Ago, Still Present Timing: Constant Initial Severity: Severe Current Severity: Mild Pain Intensity: 3 Pain Scale Used: 0-10 Numeric Chest Pain Location: Upper Sternal, Left Anterior Chest Pain Radiates: No Character: Other: - discomfort Aggravating Factor(s): Nothing Alleviating Factor(s): Other: - palpation Associated Signs and Symptoms: Positive: Other: - sharp pain behind left ear radiating into neck, jaw pain. Negative: Diaphoresis, Nausea, Vomiting - Allergy/Home Medications Allergies/Adverse Reactions: Allergies Allergy/AdvReac Type Severity Reaction Status Date / Time No Known Allergies Allergy Verified 12/07/18 07:13 Home Medications: Home Medications clonazePAM TAB(*) [Klonopin TAB(*)] 0.5 - 1 mg PO Q8HR PRN 05/12/15 [History Confirmed 05/17/19] Pantoprazole TAB * [Protonix TAB (NF)] 40 mg PO DAILY #30 tab 05/04/17 [Rx Confirmed 05/17/19] Naproxen TAB* [Naprosyn 250 mg TAB*] 500 mg PO BID PRN 05/17/19 [History Confirmed 05/17/19] PMH/Surg Hx/FS Hx/Imm Hx Endocrine/Hematology History: Denies: Hx Diabetes, Hx Thyroid Disease Cardiovascular History: Reports: Hx Valvular Heart Disease - larger left ventricle 2001, Other Cardiovascular Problems/Disorders - vasovagal attacks, none since may 22 with nose bleed. body over heats Denies: Hx Hypertension, Hx Pacemaker/ICD Respiratory History: Denies: Hx Asthma, Hx Chronic Obstructive Pulmonary Disease (COPD), Hx Seasonal Allergies, Other Respiratory Problems/Disorders GI History: Reports: Hx Gastroesophageal Reflux Disease - on meds, Hx Ulcer History: Reports: Hx Kidney Stones - 2005 Denies: Hx Renal Disease, Other Problems/Disorders Musculoskeletal History: Reports: Hx Arthritis - bilat knees, Hx Back Problems - muscle pain, left hip pain, Other Musculoskeletal History - broken bones, jaw , nose wrist thumb Sensory History: Denies: Hx Contacts or Glasses, Hx Hearing Aid Opthamlomology History: Denies: Hx Contacts or Glasses Neurological History: Denies: Other Neuro Impairments/Disorders Psychiatric History: Reports: Hx Anxiety - on meds prn, Hx Panic Disorder - ANXIETY - Surgical History Surgical History: Yes Surgery Procedure, Year, and Place: R side hernia repair 1976. ARTERY CAUTERIZED IN SINUS ABOUT 8 INCHES BACK INTO HEAD 05/2016. broken jaw repair. ROTATOR CUFF SURGERY RIGHT 06/26/16. wisdom teeth Hx Anesthesia Reactions: No - Immunization History Date of Tetanus Vaccine: unk Date of Influenza Vaccine: unk Infectious Disease History: No Infectious Disease History: Denies: Hx Clostridium Difficile, Hx Hepatitis, Hx Human Immunodeficiency Virus (HIV), Hx of Known/Suspected MRSA, Hx Shingles, Hx Tuberculosis, Hx Known/ Suspected VRE, Hx Known/Suspected VRSA, History Other Infectious Disease, Traveled Outside the [place] in Last 30 Days - Family History Known Family History: Positive: Cardiac Disease - father CHF passed age 62, Respiratory Disease - half-sister Negative: Blood Disorder - Social History Alcohol Use: Rare Alcohol Amount: social Hx Substance Use: No Substance Use Type: Reports: None Substance Use Comment - Amount & Last Used: drinks a lot of diet sodas with caffiene Hx Tobacco Use: No Smoking Status (MU): Never Smoked Tobacco Have You Smoked in the Last Year: No Review of Systems Negative: Skin Diaphoresis Positive: Ear Ache - behind left, sharp, Other - left jaw radiating into neck Positive: Chest Pain - upper discomfort Negative: Vomiting, Nausea All Other Systems Reviewed And Are Negative: Yes Physical Exam - Summary Physical Exam Summary: Appearance: The patient is well-nourished in no acute distress and in no acute pain. Skin: The skin is warm and dry, and skin color reflects adequate perfusion. HEENT: The head is normocephalic and atraumatic. The pupils are equal and reactive. The conjunctivae are clear and without drainage. Nares are patent and without drainage. Mouth reveals moist mucous membranes, and the throat is without erythema and exudate. The external ears are intact. The ear canals are patent and without drainage. The tympanic membranes are intact. Neck: The neck is supple with full range of motion with tenderness in the left paraspinal muscles. There are no carotid bruits. There is no neck vein distension. Respiratory: Chest is tender in the right anterior region. Lungs are clear to auscultation and breath sounds are symmetrical and equal. Cardiovascular: Heart is regular rate and rhythm. There is no murmur or rub auscultated. There is no peripheral edema and pulses are symmetrical and equal. Abdomen: The abdomen is soft and non-tender. There are normal bowel sounds heard in all four quadrants and there is no organomegaly palpated. Musculoskeletal: There is no back tenderness noted. Extremities are non-tender with full range of motion. There is good capillary refill. There is no peripheral edema or calf tenderness elicited. Neurological: Patient is alert and oriented to person, place and time. The patient has symmetrical motor strength in all four extremities. Cranial nerves are grossly intact. Deep tendon reflexes are symmetrical and equal in all four extremities. Psychiatric: The patient has an appropriate affect and does not exhibit any anxiety or depression. Triage Information Reviewed: Yes Vital Signs On Initial Exam: Initial Vitals Temp Pulse Resp BP Pulse Ox 98.0 F 87 19 132/84 95 05/17/19 12:36 05/17/19 12:36 05/17/19 12:36 05/17/19 12:36 05/17/19 12:36 Vital Signs Reviewed: Yes Procedures - Sedation Patient Received Moderate/Deep Sedation with Procedure: No Diagnostics - Vital Signs Vital Signs Temp Pulse Resp BP Pulse Ox 05/17/19 12:36 98.0 F 87 19 132/84 95 - Laboratory Lab Results: Lab Results 05/17/19 05/17/19 05/17/19 Range/Units 13:09 13:09 13:09 WBC 8.5 (3.5-10.8) 10^3/uL RBC 5.28 (4.18-5.48) 10^6 /uL Hgb 15.5 (14.0-18.0) g/dL Hct 45 (42-52) % MCV 86 (80-94) fL MCH 29 (27-31) pg MCHC 34 (31-36) g/dL RDW 13 (10-15) % Plt Count 240 (150-450) 10^3/uL MPV 8.7 (7.4-10.4) fL Neut % (Auto) 65.5 % Lymph % (Auto) 19.4 % Pitkin % (Auto) 9.1 % Eos % (Auto) 4.9 % Baso % (Auto) 1.1 % Absolute Neuts (auto) 5.5 (1.5-7.7) 10^3/ul Absolute Lymphs (auto) 1.6 (1.0-4.8) 10^3/ul Absolute Monos (auto) 0.8 (0-0.8) 10^3/ul Absolute Eos (auto) 0.4 (0-0.6) 10^3/ul Absolute Basos (auto) 0.1 (0-0.2) 10^3/ul Absolute Nucleated RBC 0.0 10^3/ul Nucleated RBC % 0.0 INR (Anticoag Therapy) 1.03 (0.82-1.09) Sodium 138 (135-145) mmol/L Potassium Pending Chloride 105 (101-111) mmol/L Carbon Dioxide 28 (22-32) mmol/L Anion Gap Pending BUN Pending Creatinine Pending Est GFR ( Amer) Pending Est GFR (Non-Af Amer) Pending BUN/Creatinine Ratio Pending Glucose Pending Calcium 9.1 (8.6-10.3) mg/dL Total Bilirubin 0.40 (0.2-1.0) mg/dL AST Pending ALT Pending Alkaline Phosphatase Pending Troponin I Pending Total Protein Pending Albumin 4.4 (3.2-5.2) g/dL Globulin Pending Albumin/Globulin Ratio Pending Result Diagrams: 05/17/19 13:09 05/17/19 13:09 Lab Statement: Any lab studies that have been ordered have been reviewed, and results considered in the medical decision making process. - EKG 1256 Cardiac Rate: NL - [address] Segment: Normal Summary of EKG Findings: Normal sinus rhythm, normal ST, LVH. This EKG was reviewed and interpreted by Dr. Benson. Re-Evaluation - Re-Evaluation First Eval Re-Evaluation Time: 16:52 Comment: We discussed results and plan for discharge. Chest Pain Course/Dx - Course Course Of Treatment: He was nontoxic in appearance with stable vitals. He had some chest wall and left neck tenderness. Chest x-ray, EKG and labs including a delayed troponin were all within normal limits. His heart score is a 1 or a two 2. I recommended that he follow-up with his PCP and use ibuprofen and rest. - Diagnoses Provider Diagnoses: Chest pain, Cervical radiculopathy Discharge ED - Sign-Out/Discharge Documenting (check all that apply): Patient Departure - Patient will be discharged home. - Discharge Plan Condition: Stable Disposition: HOME Patient Education Materials: Chest Pain (DC), Cervical Radiculopathy (ED) Referrals: Jonah Hanna MD [Primary Care Provider] - 3 Days Additional Instructions: Follow up with your primary care provider in 2-3 days. Return to the emergency department for any new or worsening symptoms. - Billing Disposition and Condition Condition: STABLE Disposition: Home - Attestation Statements Document Initiated by Scribe: Yes Documenting Scribe: Radha Luna Provider For Whom Scribe is Documenting (Include Credential): Dr. Alfonzo Benson MD Scribe Attestation: IRadha, scribed for Dr. Alfonzo Benson MD on 05/17/19 at 2031. Scribe Documentation Reviewed: Yes Provider Attestation: The documentation as recorded by the Radha ventura accurately reflects the service I personally performed and the decisions made by me, Dr. Alfonzo Benson MD Status of Scribluz Document: Viewed
[2019-05-17 14:02] LABS: Potassium 4.4 mmol/L (3.5-5.0)
[2019-05-17 17:15] VITALS: BP 106/60
== END 2019-05-17 17:14 | disposition home or self-care (01) ==
LOC: ED 12:32
DX: R07.9 Chest pain, unspecified (principal); M54.12 Radiculopathy, cervical region; K21.9 Gastro-esophageal reflux disease without esophagitis; F41.9 Anxiety disorder, unspecified; Z87.442 Personal history of urinary calculi; Z79.899 Other long term (current) drug therapy
CPT/HCPCS: 36415; 80053; 84484; 85025; 85610; 93005; 99282

== ENCOUNTER 2023-07-30 16:02 | Observation (INO) ==
[2023-07-30 16:36] LABS: ABS Basophils 0.1 10^3/uL (0.0-0.1); ABS Eosinophils 0.5 10^3/uL (0.0-0.5); ABS Lymphocytes 1.7 10^3/uL (1.0-4.8); ABS Monocytes 0.9 10^3/uL (0.0-1.1); ABS Nucleated RBC 0.02 10^3/ul; Eosinophil % 4.6 %; Hematocrit 45.7 % (38-53); Hemoglobin 15.5 g/dL (13.2-16.3); Lymphocyte % 17.1 %; Mean Corpuscular Hgb Conc 33.9 g/dL (31-36); Mean Corpuscular Volume 85.7 fL (80-97); Mean Platelet Volume 8.5 fL (7.5-11.2); Nucleated Red Blood Cells % 0.2 %/100WBC (0.0-0.8); Platelet Count 262 10^3/uL (150-450); Red Blood Count 5.33 10^6/uL (4.06-5.63); Red Cell Distribution Width 13.8 % (12-17); White Blood Count 10.1 10^3/uL (3.6-10.2)
[2023-07-30 16:48] LABS: INR 1.17 (0.83-1.13)
[2023-07-30 17:53] LABS: Albumin 4.5 g/dL (3.2-5.2); Albumin/Globulin Ratio 1.7 (1-3); Calcium 9.6 mg/dL (8.6-10.3); Creatinine, Serum 1.23 mg/dL (0.67-1.17); Globulin 2.7 g/dL (2-4); Potassium 4.2 mmol/L (3.5-5.0); Total Bilirubin 0.5 mg/dL (0.2-1.0); Total Protein 7.2 g/dL (6.4-8.9)
[2023-07-30 18:29] LABS: High Sensitivity Troponin 1 Hr 6 pg/mL (<20)
[2023-07-30] MEDS: Iohexol 350 (CONTRAST) 500 ML MDV IV ONE (19:52)
[2023-07-30] MEDS: Lactated Ringers 1000 ml BAG 1,000 ML IV ONE (20:36)
[2023-07-31] MEDS: Enoxaparin 40 MG/0.4 ML SYR SUBCUT SCH (00:30)
[2023-07-31 07:30] LABS: HDL Cholesterol 54.3 mg/dL
[2023-07-31 07:42] VITALS: BP 112/71
[2023-07-31 07:49] LABS: Anion Gap 7 mmol/L (2-16); Blood Urea Nitrogen 15 mg/dL (6-24); CO2 Carbon Dioxide 27 mmol/L (22-32); Calcium 8.9 mg/dL (8.6-10.3); Chloride 101 mmol/L (101-111); Creatinine, Serum 0.84 mg/dL (0.67-1.17); Glucose 92 mg/dL (70-100); Magnesium 1.9 mg/dL (1.9-2.7); Sodium 135 mmol/L (135-145); TSH Ultra Thyroid Stim Horm 1.03 mcIU/mL (0.34-5.60)
== END 2023-07-31 17:05 | disposition left against medical advice (07) ==
LOC: ED 16:02 → EDHOLD 16:02 → SUATTDRO 23:34 → EDHOLD 23:57 → MEDTELE 07-31 11:19 → EDHOLD 07-31 12:58 → MED 07-31 14:18 → EDHOLD 07-31 17:04
PROVIDERS: ADMIT Student in an Organized Health Care Education/Training Program; ATTEND Internal Medicine